=== PATIENT | female | born 1965 | race American Indian/Alaskan Native ===

== ENCOUNTER 2017-03-31 19:59 | Inpatient (IN) | payer OTHER, MEDICARE ==
[2017-03-31] MEDS ORDERED: Famotidine 20 MG/2 ML SDV IVPUSH ONE (22:14)
[2017-03-31] MEDS ORDERED: diphenhydrAMINE 25 MG Tab PO ONE (22:15)
[2017-03-31] MEDS ORDERED: Polyethylene Glycol 3350 Powder 17 GM Packet PO PRN (23:53)
[2017-03-31] MEDS ORDERED: Ondansetron 4 MG/2 ML SDV IVPUSH PRN (23:53)
[2017-03-31] MEDS ORDERED: Docusate Sodium 100 MG Cap PO PRN (23:53)
[2017-03-31] MEDS ORDERED: Acetaminophen/HYDROcodone 325-10 MG Tab PO PRN (23:53)
[2017-03-31] MEDS ORDERED: Acetaminophen 325 MG Tab PO PRN (23:53)
[2017-03-31] MEDS ORDERED: Morphine 2 MG/ML Syringe IVPUSH PRN (23:53)
[2017-03-31] MEDS ORDERED: Zolpidem 5 MG Tab PO PRN (23:53)
--- NOTE | 2017-03-31 23:58 | PCM.HP ---
H&P History of Present Illness - General Date of Service: 03/31/17 Admit Problem/Dx: Admission Diagnosis/Problem Admission Diagnosis/Problem Cellulitis Source of Information: Patient History Limitations: Reports: No Limitations - History of Present Illness Initial Comments - Free Text/Narative: 51-year-old female with past medical history of diabetes mellitus, renal failure status post kidney transplant in November of 2015, GERD, hypertension presented the emergency room for right lower extremities redness, tenderness, and 2 open sores. Patient stated that 6 days ago started having to pain and skin breakdown underside of her right toes and right foot bottom. 3 days later she started having redness, itching, tenderness in the frontal side of her right leg and was complaining of nausea, chills, headache but no fever. On she went to the clinic and was prescribed Keflex and cetrizine. however her right leg redness got worse so she came to the emergency room. In the emergency room her WBC 12.1 with left shift, sodium 131, BUN 33, creatinine 1.2, glucose 267, lactic acid 1.2, liver enzymes are normal. wound and blood cultures were obtained her ER provider spoke to Dr. Sung, her kidney transplant physician at [facility] in [place], who agreed to vancomycin. admission vancomycin was continued and Ancef was added. Right Lower Leg Pain Score (Numeric/FACES): 7 - Related Data Allergies/Adverse Reactions: Allergies Allergy/AdvReac Type Severity Reaction Status Date / Time acetaminophen Allergy Severe Cannot Verified 03/31/17 22:45 Remember Home Medications: Home Meds Cetirizine [ZyrTEC] 10 mg PO DAILY PRN 03/31/17 [History] Insulin Aspart [NovoLOG] 10 units SUBCUT TID 03/31/17 [History] Insulin Detemir [Levemir] 14 unit SUBCUT BID 03/31/17 [History] Mycophenolate Mofetil [Cellcept] 500 mg PO BID 03/31/17 [History] Pantoprazole Sodium [Protonix] 40 mg PO DAILY 03/31/17 [History] Tacrolimus [Envarsus Xr] 4 mg PO BID 03/31/17 [History] atorvaSTATin [Lipitor] 20 mg PO DAILY 03/31/17 [History] predniSONE [Prednisone] 5 mg PO DAILY 03/31/17 [History] Past Medical History HEENT History: Reports: Impaired Vision Cardiovascular History: Reports: High Cholesterol, Hypertension Respiratory History: Reports: None Gastrointestinal History: Reports: None Genitourinary History: Reports: Dialysis, Other (See Below) Other Genitourinary History: kidney transplant 2015 [employer] History: Reports: , Spontaneous Musculoskeletal History: Reports: None Neurological History: Reports: None Psychiatric History: Reports: None Endocrine/Metabolic History: Reports: Diabetes, Type II Hematologic History: Reports: Anemia Immunologic History: Reports: Solid Organ Transplant Oncologic (Cancer) History: Reports: None Dermatologic History: Reports: None - Infectious Disease History Infectious Disease History: Reports: Measles - Past Surgical History Cardiovascular Surgical History: Reports: Other (See Below) Other Cardiovascular Surgeries/Procedures: left AC fistula GI Surgical History: Reports: None Female Surgical History: Reports: Section, Hysterectomy Other Female Surgeries/Procedures: Kidney transplant Musculoskeletal Surgical History: Reports: None Social & Family History - Family History Family Medical History: Noncontributory - Tobacco Use Smoking Status *Q: Never Smoker Second Hand Smoke Exposure: Yes - Caffeine Use Caffeine Use: Reports: Soda, Tea - Recreational Drug Use Recreational Drug Use: No H&P Review of Systems - Review of Systems: Review Of Systems: See Below General: Denies: Fever, Weakness, Night Sweats, Diaphoresis, Decreased Appetite , Weight Loss, Weight Gain HEENT: Reports: No Symptoms Pulmonary: Reports: No Symptoms Cardiovascular: Reports: No Symptoms Gastrointestinal: Reports: No Symptoms Genitourinary: Reports: No Symptoms Musculoskeletal: Reports: No Symptoms Skin: Denies: Cyanosis, Jaundice, Pallor, Diaphoresis, Bruising, Urticaria Psychiatric: Reports: No Symptoms Neurological: Reports: No Symptoms Hematologic/Lymphatic: Reports: No Symptoms Immunologic: Reports: No Symptoms Exam - Exam Exam: See Below - Vital Signs Vital Signs: Last Vital Signs Temp 36.3 C 03/31/17 22:42 Pulse 87 03/31/17 22:42 Resp 16 03/31/17 22:42 BP 143/55 H 03/31/17 22:42 Pulse Ox 100 03/31/17 22:42 Weight: 73.482 kg - Exam General: Alert, Oriented, Cooperative. No: Mild Distress, Moderate Distress, Severe Distress, Sedated, Lethargic, Obtunded HEENT: Conjunctiva Clear, EACs Clear, EOMI, Hearing Intact, Mucosa Moist & [place] , Nares Patent, Normal Nasal Septum, Posterior Pharynx Clear, Pupils Equal, Pupils Reactive, TMs Clear Neck: Supple, Trachea Midline Lungs: Clear to Auscultation, Normal Respiratory Effort Cardiovascular: Regular Rate, Regular Rhythm Abdomen: Normal Bowel Sounds, Soft, Pelvis Stable (Female) Exam: Deferred Rectal (Female) Exam: Deferred Back Exam: Normal Inspection, Full Range of Motion Extremities: Normal Pulses. No: Clubbing, Cyanosis, Calf Tenderness, Edema Skin: Warm, Dry, Other (she has marked redness, warmth, tenderness on the frontal right lower leg. Second write to hasn't first degree ulcer on medial and lateral side. There is macerated skin and crack between the fourth and fifth right toes. There is superficial small wound on right plantar) Neurological: Cranial Nerves Intact, Reflexes Equal Bilateral Neuro Extensive - Mental Status: Alert, Oriented x3, Normal Mood/Affect, Normal Cognition, Memory Intact Neuro Extensive - Motor, Sensory, Reflexes: CN II-XII Intact, Normal Gait, Normal Reflexes Psychiatric: Alert, Normal Affect, Normal Mood - Patient Data Result Diagrams: 03/31/17 20:55 03/31/17 20:55 *Q Meaningful Use (ADM) - VTE *Q VTE Criteria *Q: - Stroke *Q Stroke Criteria *Q: - AMI *Q AMI Criteria *Q: - Problem List (1) Cellulitis of right leg SNOMED Code(s): 272007150 ICD Code: L03.115 - CELLULITIS OF RIGHT LOWER LIMB Status: Acute Priority : High Current Visit: Yes (2) Right foot ulcer SNOMED Code(s): 90387674 ICD Code: L97.519 - NON-PRS CHRONIC ULCER OTH PRT RIGHT FOOT W UNSP SEVERITY Status: Acute Priority: High Current Visit: Yes (3) Diabetic ulcer of right foot SNOMED Code(s): 277586391 ICD Code: E11.621 - TYPE 2 DIABETES MELLITUS WITH FOOT ULCER; L97.519 - NON- PRS CHRONIC ULCER OTH PRT RIGHT FOOT W UNSP SEVERITY Status: Chronic Current Visit: Yes (4) Tinea pedis of right foot SNOMED Code(s): 1589334 ICD Code: B35.3 - TINEA PEDIS Status: Acute Current Visit: Yes (5) Diabetes mellitus SNOMED Code(s): 07013324 ICD Code: E11.9 - TYPE 2 DIABETES MELLITUS WITHOUT COMPLICATIONS Status: Chronic Current Visit: Yes (6) Kidney transplant recipient SNOMED Code(s): 531141185 ICD Code: Z94.0 - KIDNEY TRANSPLANT STATUS Status: Chronic Current Visit : Yes (7) Hyponatremia SNOMED Code(s): 55959875 ICD Code: E87.1 - HYPO-OSMOLALITY AND HYPONATREMIA Status: Chronic Current Visit: No Problem List Initiated/Reviewed/Updated: Yes Orders Last 24hrs: Active Orders 24 hr Category Date Time Status Patient Status [ADT] Routine ADT 03/31/17 23:51 Active Antiembolic Devices [RC] PER UNIT ROUTINE Care 03/31/17 23:53 Active Height and Weight [RC] DAILY Care 03/31/17 23:51 Active Intake and Output [RC] QSHIFT Care 03/31/17 23:52 Active Oxygen Therapy [RC] PRN Care 03/31/17 23:51 Active Up ad Linda [RC] ASDIRECTED Care 03/31/17 23:51 Active VTE/DVT Education [RC] PER UNIT ROUTINE Care 03/31/17 23:51 Active Vital Signs [RC] Q4H Care 03/31/17 23:51 Active Consistent Carbohydrate Diet [DIET] Diet 03/31/17 Breakfast Active BASIC METABOLIC PANEL,BMP [CHEM] AM Lab 04/01/17 05:11 Ordered C-REACTIVE PROTEIN [REF] DAILY Lab 03/31/17 05:11 Ordered C-REACTIVE PROTEIN [REF] DAILY Lab 04/01/17 05:11 Ordered C-REACTIVE PROTEIN [REF] DAILY Lab 04/02/17 05:11 Ordered CBC WITH AUTO DIFF [HEME] AM Lab 04/01/17 05:11 Ordered Acetaminophen [Tylenol] Med 03/31/17 23:53 Ordered 650 mg PO Q4H PRN Acetaminophen/HYDROcodone [[place] 325-10 MG] Med 03/31/17 23:53 Ordered 1 tab PO Q4H PRN Cetirizine [ZyrTEC] Med 03/31/17 23:49 Ordered 10 mg PO DAILY PRN Docusate Sodium [Colace] Med 03/31/17 23:53 Ordered 100 mg PO BID PRN Enoxaparin [Lovenox] Med 04/01/17 09:00 Ordered 40 mg SUBCUT DAILY Insulin Aspart [NovoLOG] Med 04/01/17 09:00 Ordered 10 unit SUBCUT TID Insulin Detemir Med 04/01/17 09:00 Ordered 14 unit SUBCUT BID Morphine Med 03/31/17 23:53 Ordered 2 mg IVPUSH Q2H PRN Mycophenolate Mofetil [Cellcept] Med 04/01/17 09:00 Ordered 500 mg PO BID Ondansetron [Zofran] Med 03/31/17 23:53 Ordered 4 mg IVPUSH Q6H PRN Pantoprazole Sodium [Protonix] Med 04/01/17 09:00 Ordered 40 mg PO DAILY Polyethylene Glycol 3350 [MiraLAX] Med 03/31/17 23:53 Ordered 17 gm PO DAILY PRN Sodium Chloride 0.9% @ 125 MLS/HR (1000ml) Med 03/31/17 23:45 Ordered Sodium Chloride 0.9% [Normal Saline] 1,000 ml IV ASDIRECTED Tacrolimus [Envarsus Xr] Med 04/01/17 09:00 Ordered 4 mg PO BID Vancomycin Pharmacy to Dose [Pharmacy to Dose - Med 03/31/17 23:45 Ordered Vancomycin] 1 dose .XX ASDIRECTED Zolpidem [Ambien] Med 03/31/17 23:53 Ordered 5 mg PO BEDTIME PRN atorvaSTATin [Lipitor] Med 04/01/17 09:00 Ordered 20 mg PO DAILY ceFAZolin [Ancef] 1 gm Med 04/01/17 06:00 Ordered Premix Bag 1 bag IV Q8HR predniSONE Med 04/01/17 09:00 Ordered 5 mg PO DAILY Antiembolic Hose [OM.PC] Per Unit Routine Oth 03/31/17 23:52 Ordered Resuscitation Status Routine Resus Stat 03/31/17 23:51 Ordered Assessment/Plan Comment:: Right foot cellulitis -vancomycin and Ancef IV -Awaiting Gram stain, with culture, blood culture results Lymphedema wrap pharmacy to dose Vancomycin Diabetic foot ulcer Control blood glucose Dressing IV antibiotic Clotrimazole topical Patient was indicated to avoid tight open shoes and try to wear diabetic shoes Tinea pedis, right foot Clotrimazole twice a day Diabetes mellitus Sliding scale insulin in addition to her home regimen diabetic diet Hyponatremia, possible chronic -IV fluids infusion with normal saline -recheck sodium level in the morning Status post kidney transplant in November of 2015 Dr. Logan is aware of patient admission His phone number is [phone] Watch creatinine Continue prednisone, Mycophenolate, and Tacrolimus GERD continue pantoprazole Lovenox for DVT prophylaxis She spoke with
[2017-04-01] MEDS ORDERED: oxyCODONE 5 MG Tab PO PRN (00:42)
[2017-04-01] MEDS: Sodium Chloride 0.9% 1,000 ML IV SCH ×2 (00:44→09:22)
[2017-04-01] MEDS: ceFAZolin 1 GM in Premix Bag 1 BAG IV SCH ×3 (01:32→17:35)
--- NOTE | 2017-04-01 03:53 | EDM.PDOC ---
ED HPI GENERAL MEDICAL PROBLEM - General Chief Complaint: Skin Complaint Stated Complaint: SPIDER BITE Time Seen by Provider: 03/31/17 20:10 Source of Information: Reports: Patient History Limitations: Reports: No Limitations - History of Present Illness INITIAL COMMENTS - FREE TEXT/NARRATIVE: c/o of increased redness swelling and pain to right lower leg. Was [facility] at [facility] on[facility] and started on keflex, origianlly thought it was spiderbite and was told by MD there that it was allergic reaction to something, also gave triamcinolone cream and another medication unsure what it was. Voices concern with interactions with other current medications as is renal transplant patient , November 2015 Jasen Moreno. Onset: Other (, clinic Sunday) Right Lower Leg Pain Score (Numeric/FACES): 7 - Related Data Allergies Allergy/AdvReac Type Severity Reaction Status Date / Time acetaminophen Allergy Severe Cannot Verified 03/31/17 22:45 Remember Home Meds: Home Meds Cetirizine [ZyrTEC] 10 mg PO DAILY PRN 03/31/17 [History] Insulin Aspart [NovoLOG] 10 units SUBCUT TID 03/31/17 [History] Insulin Detemir [Levemir] 14 unit SUBCUT BID 03/31/17 [History] Mycophenolate Mofetil [Cellcept] 500 mg PO BID 03/31/17 [History] Pantoprazole Sodium [Protonix] 40 mg PO DAILY 03/31/17 [History] Tacrolimus [Envarsus Xr] 4 mg PO BID 03/31/17 [History] atorvaSTATin [Lipitor] 20 mg PO DAILY 03/31/17 [History] predniSONE [Prednisone] 5 mg PO DAILY 03/31/17 [History] Past Medical History HEENT History: Reports: Impaired Vision Cardiovascular History: Reports: High Cholesterol, Hypertension Respiratory History: Reports: None Gastrointestinal History: Reports: None Genitourinary History: Reports: Dialysis, Other (See Below) Other Genitourinary History: kidney transplant 2015 [employer] History: Reports: , Spontaneous Musculoskeletal History: Reports: None Neurological History: Reports: None Psychiatric History: Reports: None Endocrine/Metabolic History: Reports: Diabetes, Type II Hematologic History: Reports: Anemia Immunologic History: Reports: Solid Organ Transplant Oncologic (Cancer) History: Reports: None Dermatologic History: Reports: None - Infectious Disease History Infectious Disease History: Reports: Measles - Past Surgical History Cardiovascular Surgical History: Reports: Other (See Below) Other Cardiovascular Surgeries/Procedures: left AC fistula GI Surgical History: Reports: None Female Surgical History: Reports: Section, Hysterectomy Other Female Surgeries/Procedures: Kidney transplant Musculoskeletal Surgical History: Reports: None Social & Family History - Family History Family Medical History: Noncontributory - Tobacco Use Smoking Status *Q: Never Smoker Second Hand Smoke Exposure: Yes - Caffeine Use Caffeine Use: Reports: Soda, Tea - Recreational Drug Use Recreational Drug Use: No ED ROS GENERAL - Review of Systems Review Of Systems: See Below Constitutional: Reports: Fever HEENT: Reports: No Symptoms Respiratory: Reports: No Symptoms Cardiovascular: Reports: No Symptoms Endocrine: Reports: High Glucose GI/Abdominal: Reports: No Symptoms Musculoskeletal: Reports: Leg Pain Skin: Reports: Erythema, Wound (open sores right foot between toes) Neurological: Reports: No Symptoms Immunologic: Reports: Other (immunosuppressed) ED EXAM, SKIN/RASH Exam: See Below Exam Limited By: No Limitations General Appearance: Alert, Mild Distress Eye Exam: Bilateral Eye: EOMI, PERRL Ears: Normal External Exam, Normal TMs Nose: Normal Inspection Throat/Mouth: Normal Inspection Head: Atraumatic, Normocephalic Neck: Normal Inspection Respiratory/Chest: No Respiratory Distress, Lungs Clear, Normal Breath Sounds Cardiovascular: Normal Peripheral Pulses, Regular Rate, Rhythm Peripheral Pulses: 2+: Posterior Tibial (L), Posterior Tibial (R) GI/Abdominal: Normal Bowel Sounds, Soft Extremities: Normal Range of Motion, Leg Pain. No: Chrissy's Sign Neurological: Alert, Oriented, Normal Cognition, Abnormal Gait (antalgic favoring right leg) Skin: Warm, Erythema (right lower), Wound/Incision (open area between 4th and 5th toes 1st-3rd, web space. ). No: Intact Location, Skin: Upper Extremity, Right Characteristics: [place], Erythematous. No: Vesicular Course - Vital Signs Last Recorded V/S: Last Vital Signs Temp 99.4 F 04/01/17 03:00 Pulse 83 04/01/17 03:00 Resp 16 04/01/17 03:00 BP 118/55 L 04/01/17 03:00 Pulse Ox 95 04/01/17 03:00 - Orders/Labs/Meds Orders: Active Orders 24 hr Category Date Time Status CULTURE BLOOD [BC] Stat Lab 03/31/17 22:20 Results CULTURE WOUND [RM] Stat Lab 03/31/17 20:55 Received Cetirizine [ZyrTEC] Med 03/31/17 23:49 Pending 10 mg PO DAILY PRN Insulin Aspart [NovoLOG] Med 04/01/17 09:00 Active 0 unit SUBCUT TID Insulin Detemir [Levemir] Med 04/01/17 09:00 Active 0 unit SUBCUT BID Mycophenolate Mofetil [Cellcept] Med 04/01/17 09:00 Active 500 mg PO BID Pantoprazole [ProTONIX] Med 04/01/17 09:00 Active 40 mg PO DAILY Tacrolimus [Envarsus Xr] Med 04/01/17 09:00 Pending 4 mg PO BID atorvaSTATin [Lipitor] Med 04/01/17 09:00 Active 20 mg PO DAILY predniSONE Med 04/01/17 09:00 Active 5 mg PO DAILY Blood Culture x2 Reflex Set [OM.PC] Stat Oth 03/31/17 22:00 Ordered Medication Orders Atorvastatin Calcium (Lipitor) 20 mg PO DAILY [facility] Clotrimazole (Lotrimin Af 1% Crm) 0 gm TOP BID [facility] Docusate Sodium (Colace) 100 mg PO BID PRN PRN Reason: Constipation Enoxaparin Sodium (Lovenox) 40 mg SUBCUT DAILY [facility] Sodium Chloride (Normal Saline) 1,000 mls @ 125 mls/hr IV ASDIRECTED [facility] Stop: 04/01/17 18:00 Last Admin: 04/01/17 00:44 Dose: 125 mls/hr Vancomycin HCl 1 gm/ Sodium (Chloride) 250 mls @ 166.667 mls/hr IV Q12H [facility] Cefazolin Sodium/Dextrose 1 gm (/ Premix) 50 mls @ 100 mls/hr IV Q8H [facility] Last Infusion: 04/01/17 02:29 Dose: 100 mls/hr Admin: 04/01/17 01:32 Dose: 100 mls/hr Insulin Aspart (Novolog) 0 unit SUBCUT TID [facility] Insulin Aspart (Novolog) 0 unit SUBCUT QIDACANDBED [facility] PRN Reason: Protocol Insulin Detemir (Levemir) 0 unit SUBCUT BID [facility] Morphine Sulfate (Morphine) 2 mg IVPUSH Q2H PRN PRN Reason: Pain (severe 7-10) Mycophenolate Mofetil (Cellcept) 500 mg PO BID [facility] Non-Formulary Medication (Cetirizine [Zyrtec]) 10 mg PO DAILY PRN PRN Reason: Allergies Non-Formulary Medication (Tacrolimus [Envarsus Xr]) 4 mg PO BID [facility] Ondansetron HCl (Zofran) 4 mg IVPUSH Q6H PRN PRN Reason: Nausea/Vomiting Oxycodone HCl (Oxycodone) 5 mg PO Q6H PRN PRN Reason: moderate to sever pain Pantoprazole Sodium (Protonix) 40 mg PO DAILY [facility] Polyethylene Glycol (Miralax) 17 gm PO DAILY PRN PRN Reason: Constipation Prednisone (Prednisone) 5 mg PO DAILY [facility] Vancomycin HCl (Pharmacy To Dose - Vancomycin) 1 dose .XX ASDIRECTED [facility] Zolpidem Tartrate (Ambien) 5 mg PO BEDTIME PRN PRN Reason: Sleep Labs: Laboratory Tests 03/31/17 03/31/17 03/31/17 Range/Units 20:55 20:55 20:55 WBC 12.1 H (5.0-10.0) 10^3/uL RBC 4.21 (4.2-5.4) 10^6/uL Hgb 11.7 L (12.0-16.0) g/dL Hct 36.0 L (37.0-47.0) % MCV 85.5 (80-100) fL MCH 27.8 (27.0-34.0) pg MCHC 32.5 L (33.0-35.0) g/dL Plt Count 195 (150-450) 10^3/uL Neut % (Auto) 89.3 H (42.2-75.2) % Lymph % (Auto) 3.4 L (20.5-50.1) % [place] % (Auto) 7.0 (2-8) % Eos % (Auto) 0.2 L (1.0-3.0) % Baso % (Auto) 0.1 (0.0-1.0) % Sodium 131 L (135-145) mmol/L Potassium 4.6 (3.6-5.0) mmol/L Chloride 99 L (101-111) mmol/L Carbon Dioxide 26.0 (21.0-31.0) mmol/L Anion Gap 10.6 BUN 33 H (7-18) mg/dL Creatinine 1.2 (0.6-1.3) mg/dL Est Cr Clr Drug Dosing 46.91 mL/min Estimated GFR (MDRD) 48 BUN/Creatinine Ratio 27.50 Glucose 267 H (74-105) mg/dL Lactic Acid 1.0 (0.5-2.2) mmol/L Calcium 8.5 (8.4-10.2) mg/dl Total Bilirubin 1.0 (0.2-1.0) mg/dL AST 22 (10-42) IU/L ALT 15 (10-60) IU/L Alkaline Phosphatase 101 (42-121) IU/L C-Reactive Protein (0.0-1.3) mg/dL Total Protein 7.5 (6.7-8.2) g/dl Albumin 3.7 (3.2-5.5) g/dl Globulin 3.8 Albumin/Globulin Ratio 0.97 05//17 Range/Units 20:55 WBC (5.0-10.0) 10^3/uL RBC (4.2-5.4) 10^6/uL Hgb (12.0-16.0) g/dL Hct (37.0-47.0) % MCV (80-100) fL MCH (27.0-34.0) pg MCHC (33.0-35.0) g/dL Plt Count (150-450) 10^3/uL Neut % (Auto) (42.2-75.2) % Lymph % (Auto) (20.5-50.1) % [place] % (Auto) (2-8) % Eos % (Auto) (1.0-3.0) % Baso % (Auto) (0.0-1.0) % Sodium (135-145) mmol/L Potassium (3.6-5.0) mmol/L Chloride (101-111) mmol/L Carbon Dioxide (21.0-31.0) mmol/L Anion Gap BUN (7-18) mg/dL Creatinine (0.6-1.3) mg/dL Est Cr Clr Drug Dosing mL/min Estimated GFR (MDRD) BUN/Creatinine Ratio Glucose (74-105) mg/dL Lactic Acid (0.5-2.2) mmol/L Calcium (8.4-10.2) mg/dl Total Bilirubin (0.2-1.0) mg/dL AST (10-42) IU/L ALT (10-60) IU/L Alkaline Phosphatase (42-121) IU/L C-Reactive Protein 14.7 H (0.0-1.3) mg/dL Total Protein (6.7-8.2) g/dl Albumin (3.2-5.5) g/dl Globulin Albumin/Globulin Ratio Meds: Medications Generic Name Dose Route Start Last Admin Trade Name Freq PRN Reason Stop Dose Admin Atorvastatin Calcium 20 mg 04/01/17 09:00 Lipitor PO DAILY [facility] Clotrimazole 0 gm 04/01/17 09:00 Lotrimin Af 1% Crm TOP BID [facility] Docusate Sodium 100 mg 03/31/17 23:53 Colace PO BID PRN Constipation Enoxaparin Sodium 40 mg 04/01/17 09:00 Lovenox SUBCUT DAILY [facility] Sodium Chloride 1,000 mls @ 125 mls/hr 03/31/17 23:45 04/01/17 00:44 Normal Saline IV 04/01/17 18:00 125 mls/hr ASDIRECTED [facility] Administration Vancomycin HCl 1 gm/ Sodium 250 mls @ 166.667 mls/hr 04/01/17 10:00 Chloride IV Q12H [facility] Cefazolin Sodium/Dextrose 1 gm 50 mls @ 100 mls/hr 04/01/17 01:00 04/01/17 02 :29 / Premix IV Infused Q8H [facility] Infusion Insulin Aspart 0 unit 04/01/17 09:00 Novolog SUBCUT TID [facility] Insulin Aspart 0 unit 04/01/17 07:00 Novolog SUBCUT QIDACANDBED [facility] Protocol Insulin Detemir 0 unit 04/01/17 09:00 Levemir SUBCUT BID [facility] Morphine Sulfate 2 mg 03/31/17 23:53 Morphine IVPUSH Q2H PRN Pain (severe 7-10) Mycophenolate Mofetil 500 mg 04/01/17 09:00 Cellcept PO BID [facility] Non-Formulary Medication 10 mg 03/31/17 23:49 Cetirizine [Zyrtec] PO DAILY PRN Allergies Non-Formulary Medication 4 mg 04/01/17 09:00 Tacrolimus [Envarsus Xr] PO BID [facility] Ondansetron HCl 4 mg 03/31/17 23:53 Zofran IVPUSH Q6H PRN Nausea/Vomiting Oxycodone HCl 5 mg 04/01/17 00:42 Oxycodone PO Q6H PRN moderate to sever pain Pantoprazole Sodium 40 mg 04/01/17 09:00 Protonix PO DAILY [facility] Polyethylene Glycol 17 gm 03/31/17 23:53 Miralax PO DAILY PRN Constipation Prednisone 5 mg 04/01/17 09:00 Prednisone PO DAILY [facility] Vancomycin HCl 1 dose 03/31/17 23:45 Pharmacy To Dose - Vancomycin .XX ASDIRECTED [facility] Zolpidem Tartrate 5 mg 03/31/17 23:53 Ambien PO BEDTIME PRN Sleep Discontinued Medications Generic Name Dose Route Start Last Admin Trade Name Freq PRN Reason Stop Dose Admin Acetaminophen 650 mg 03/31/17 23:53 Tylenol PO Q4H PRN Pain (Mild 1-3)/fever Hydrocodone Bitart/Acetaminophen 1 tab 03/31/17 23:53 Harvey 325-10 Mg PO Q4H PRN Pain (moderate 4-6) Diphenhydramine HCl 25 mg 03/31/17 22:15 03/31/17 22:28 Benadryl PO 03/31/17 22:16 25 mg ONETIME ONE Administration Famotidine 20 mg 03/31/17 22:14 03/31/17 22:28 Pepcid IVPUSH 03/31/17 22:15 20 mg ONETIME ONE Administration Vancomycin HCl 1 gm/ Sodium 250 mls @ 167 mls/hr 03/31/17 22:12 03/31/17 22: 30 Chloride IV 03/31/17 23:41 167 mls/hr ONETIME ONE Administration Cefazolin Sodium/Dextrose 1 gm 50 mls @ 100 mls/hr 04/01/17 06:00 / Premix IV Q8HR [facility] - Re-Assessments/Exams Free Text/Narrative Re-Assessment/Exam: 04/01/17 04:[address] Pineda Moreno if clinical stable may trial outpatient however with open wound and elevated WBC would benefit from IV therapy. Dr. Dunham accepting of admission. IV vancomycin compatibility confirmed with Dr. Barnsdall as appropriate with trransplant. Departure - Departure Time of Disposition: 03:00 Disposition: Admitted As Inpatient 68 Condition: fair Clinical Impression: Open wound, Renal transplant recipient Cellulitis Qualifiers: Site of cellulitis: extremity Site of cellulitis of extremity: lower extremity Laterality: right Qualified Code(s): L03.115 - Cellulitis of right lower limb Diabetes mellitus Qualifiers: Diabetes mellitus type: type 2 Diabetes mellitus complication status: with kidney complications Diabetes mellitus complication detail: with other kidney complication Diabetes mellitus rn long term care insulin use: without rn long term care use Qualified Code(s): E11.29 - Type 2 diabetes mellitus with other diabetic kidney complication - Discharge Information - My Orders Last 24 Hours: My Active Orders 03/31/17 20:55 CULTURE WOUND [RM] Stat 03/31/17 22:00 Blood Culture x2 Reflex Set [OM.PC] Stat 03/31/17 22:20 CULTURE BLOOD [BC] Stat - Assessment/Plan Last 24 Hours: My Active Orders 03/31/17 20:55 CULTURE WOUND [RM] Stat 03/31/17 22:00 Blood Culture x2 Reflex Set [OM.PC] Stat 03/31/17 22:20 CULTURE BLOOD [BC] Stat
[2017-04-01] MEDS ORDERED: ceFAZolin 1 GM in Premix Bag 1 BAG IV SCH (06:00)
[2017-04-01 07:26] LABS: CHLORIDE,CL 106 mmol/L (101-111); SODIUM,NA 134 mmol/L (135-145)
[2017-04-01] MEDS: Insulin Aspart 100 Units/ML 3 ML Pen SUBCUT SCH ×6 (08:26→21:08)
[2017-04-01] MEDS ORDERED: Insulin Aspart 100 Units/ML 3 ML Pen SUBCUT SCH (09:00)
[2017-04-01] MEDS ORDERED: Mycophenolate Mofetil 250 MG Cap PO SCH (09:00)
[2017-04-01] MEDS: TACROLIMUS 4 MG PO SCH ×2 (09:09→21:07)
[2017-04-01] MEDS: Insulin Detemir 100 Units/ML 3 ML Pen SUBCUT SCH ×2 (09:10→21:07)
[2017-04-01] MEDS: atorvaSTATin 20 MG Tab PO SCH (09:11)
[2017-04-01] MEDS: predniSONE 5 MG Tab PO SCH (09:11)
[2017-04-01] MEDS: Enoxaparin 40 MG/0.4 ML Syringe SUBCUT SCH (09:12)
[2017-04-01] MEDS: Clotrimazole 1% Crm 30 GM Tube TOP SCH ×2 (09:12→21:08)
[2017-04-01] MEDS: Pantoprazole 40 MG Tab.CR PO SCH (09:15)
[2017-04-01] MEDS: Mycophenolate Mofetil 250 MG Cap PO SCH ×2 (11:33→23:02)
--- NOTE | 2017-04-01 11:47 | PCM.PN ---
- General Info Date of Service: 04/01/17 Admission Dx/Problem (Free Text): Admission Diagnosis/Problem Admission Diagnosis/Problem Cellulitis Subjective Update: patient states that she is feeling better. Her right leg redness improved. She still complained of a right leg pain when she walks. She stated that oxycodone is strong for her and she requests only Tylenol. She stated she is to have history of Tylenol allergy many years ago recently she has been taking it multiple times without any reactions or problem. She denies fever, chills, nausea, vomiting, abdominal pain, or neck symptoms, unilateral weakness, or any other symptoms - Patient Data Vitals - most recent: Last Vital Signs Temp 36.3 C 04/01/17 11:19 Pulse 83 04/01/17 11:19 Resp 20 04/01/17 11:19 BP 118/46 L 04/01/17 11:19 Pulse Ox 98 04/01/17 11:19 Weight - most recent: 73.663 kg I&O - last 24 hours: Intake & Output 03/31/17 04/01/17 04/01/17 22:59 06:59 14:59 Intake Total 302 982 Balance 302 982 Lab Results last 24 hrs: Laboratory Results - last 24 hr 04/01/17 04/01/17 04/01/17 Range/Units 06:30 06:30 06:30 WBC 9.0 (5.0-10.0) 10^3/uL RBC 3.77 L (4.2-5.4) 10^6/uL Hgb 10.6 L (12.0-16.0) g/dL Hct 32.7 L (37.0-47.0) % MCV 86.7 (80-100) fL MCH 28.1 (27.0-34.0) pg MCHC 32.4 L (33.0-35.0) g/dL Plt Count 194 (150-450) 10^3/uL Neut % (Auto) 85.3 H (42.2-75.2) % Lymph % (Auto) 4.6 L (20.5-50.1) % [place] % (Auto) 9.4 H (2-8) % Eos % (Auto) 0.6 L (1.0-3.0) % Baso % (Auto) 0.1 (0.0-1.0) % Sodium 134 L (135-145) mmol/L Potassium 3.8 (3.6-5.0) mmol/L Chloride 106 (101-111) mmol/L Carbon Dioxide 24.0 (21.0-31.0) mmol/L Anion Gap 7.8 BUN 24 H (7-18) mg/dL Creatinine 0.9 (0.6-1.3) mg/dL Est Cr Clr Drug Dosing 62.55 mL/min Estimated GFR (MDRD) > 60 Glucose 176 H (74-105) mg/dL POC Glucose (70-105) mg/dl Calcium 8.0 L (8.4-10.2) mg/dl C-Reactive Protein 11.2 H (0.0-1.3) mg/dL 04/01/17 04/01/17 Range/Units 08:07 11:11 WBC (5.0-10.0) 10^3/uL RBC (4.2-5.4) 10^6/uL Hgb (12.0-16.0) g/dL Hct (37.0-47.0) % MCV (80-100) fL MCH (27.0-34.0) pg MCHC (33.0-35.0) g/dL Plt Count (150-450) 10^3/uL Neut % (Auto) (42.2-75.2) % Lymph % (Auto) (20.5-50.1) % [place] % (Auto) (2-8) % Eos % (Auto) (1.0-3.0) % Baso % (Auto) (0.0-1.0) % Sodium (135-145) mmol/L Potassium (3.6-5.0) mmol/L Chloride (101-111) mmol/L Carbon Dioxide (21.0-31.0) mmol/L Anion Gap BUN (7-18) mg/dL Creatinine (0.6-1.3) mg/dL Est Cr Clr Drug Dosing mL/min Estimated GFR (MDRD) Glucose (74-105) mg/dL POC Glucose 172 H 218 H (70-105) mg/dl Calcium (8.4-10.2) mg/dl C-Reactive Protein (0.0-1.3) mg/dL [place] Results last 24 hrs: Microbiology 05/14/17 00:23 Gram Stain - Final Skin / Skin Scrapings - Toe, Right Unspecified Med Orders - Current: Current Medications Acetaminophen (Tylenol) 650 mg PO Q6H PRN PRN Reason: mild to moderate pain Atorvastatin Calcium (Lipitor) 20 mg PO DAILY [facility] Last Admin: 04/01/17 09:11 Dose: 20 mg Clotrimazole (Lotrimin Af 1% Crm) 0 gm TOP BID [facility] Last Admin: 04/01/17 09:12 Dose: 1 applic Docusate Sodium (Colace) 100 mg PO BID PRN PRN Reason: Constipation Enoxaparin Sodium (Lovenox) 40 mg SUBCUT DAILY [facility] Last Admin: 04/01/17 09:12 Dose: 40 mg Sodium Chloride (Normal Saline) 1,000 mls @ 125 mls/hr IV ASDIRECTED [facility] Stop: 04/01/17 18:00 Last Admin: 04/01/17 09:22 Dose: 125 mls/hr Vancomycin HCl 1 gm/ Sodium (Chloride) 250 mls @ 166.667 mls/hr IV Q12H [facility] Last Admin: 04/01/17 11:33 Dose: 166.667 mls/hr Cefazolin Sodium/Dextrose 1 gm (/ Premix) 50 mls @ 100 mls/hr IV Q8H [facility] Last Admin: 04/01/17 09:13 Dose: 100 mls/hr Insulin Aspart (Novolog) 0 unit SUBCUT TID [facility] Last Admin: 04/01/17 08:25 Dose: 10 units Insulin Aspart (Novolog) 0 unit SUBCUT QIDACANDBED [facility] PRN Reason: Protocol Last Admin: 04/01/17 08:26 Dose: 2 units Insulin Detemir (Levemir) 0 unit SUBCUT BID [facility] Last Admin: 04/01/17 09:10 Dose: 14 units Morphine Sulfate (Morphine) 2 mg IVPUSH Q2H PRN PRN Reason: Pain (severe 7-10) Mycophenolate Mofetil (Cellcept) 500 mg PO BID@1100,2300 [facility] Last Admin: 04/01/17 11:33 Dose: 500 mg Non-Formulary Medication (Cetirizine [Zyrtec]) 10 mg PO DAILY PRN PRN Reason: Allergies Ondansetron HCl (Zofran) 4 mg IVPUSH Q6H PRN PRN Reason: Nausea/Vomiting Oxycodone HCl (Oxycodone) 5 mg PO Q6H PRN PRN Reason: moderate to sever pain Pantoprazole Sodium (Protonix) 40 mg PO DAILY [facility] Last Admin: 04/01/17 09:15 Dose: Not Given Tacrolimus 4 Mg (Own Med) 0 each PO BID [facility] Last Admin: 04/01/17 09:09 Dose: 4 each Polyethylene Glycol (Miralax) 17 gm PO DAILY PRN PRN Reason: Constipation Prednisone (Prednisone) 5 mg PO DAILY [facility] Last Admin: 04/01/17 09:11 Dose: 5 mg Vancomycin HCl (Pharmacy To Dose - Vancomycin) 1 dose .XX ASDIRECTED [facility] Zolpidem Tartrate (Ambien) 5 mg PO BEDTIME PRN PRN Reason: Sleep Discontinued Medications Acetaminophen (Tylenol) 650 mg PO Q4H PRN PRN Reason: Pain (Mild 1-3)/fever Hydrocodone Bitart/Acetaminophen ([place] 325-10 Mg) 1 tab PO Q4H PRN PRN Reason: Pain (moderate 4-6) Diphenhydramine HCl (Benadryl) 25 mg PO ONETIME ONE Stop: 03/31/17 22:16 Last Admin: 03/31/17 22:28 Dose: 25 mg Famotidine (Pepcid) 20 mg IVPUSH ONETIME ONE Stop: 03/31/17 22:15 Last Admin: 03/31/17 22:28 Dose: 20 mg Vancomycin HCl 1 gm/ Sodium (Chloride) 250 mls @ 167 mls/hr IV ONETIME ONE Stop: 03/31/17 23:41 Last Admin: 03/31/17 22:30 Dose: 167 mls/hr Cefazolin Sodium/Dextrose 1 gm (/ Premix) 50 mls @ 100 mls/hr IV Q8HR [facility] Mycophenolate Mofetil (Cellcept) 500 mg PO BID [facility] Last Admin: 04/01/17 11:28 Dose: Not Given - Exam General: alert, oriented, cooperative, no acute distress. No: mild distress, moderate distress, severe distress, sedated, lethargic, obtunded HEENT: Pupils equal, Pupils reactive, EOMI, Mucous membr. moist/pink Neck: supple, trachea midline Lungs: Clear to auscultation, Normal respiratory effort Cardiovascular: Regular Rate, Regular Rhythm Abdomen: bowel sounds present, soft, no tenderness, no distension (Female) Exam: Deferred Back Exam: Normal Inspection, Full Range of Motion Extremities: no edema, normal pulses, no tenderness/swelling, no clubbing, no cyanosis, no calf tenderness, other (normal capillary refills in sensation in toes bilaterally) Skin: other (right leg redness markedly improved) Neurological: no new focal deficit Psy/Mental Status: alert, normal affect, normal mood - Problem List & Annotations (1) Cellulitis of right leg SNOMED Code(s): 326438557 Code(s): L03.115 - CELLULITIS OF RIGHT LOWER LIMB Status: Acute Priority : High Current Visit: Yes (2) Right foot ulcer SNOMED Code(s): 98891995 Code(s): L97.519 - NON-PRS CHRONIC ULCER OTH PRT RIGHT FOOT W UNSP SEVERITY Status: Acute Priority: High Current Visit: Yes (3) Diabetic ulcer of right foot SNOMED Code(s): 308547809 Code(s): E11.621 - TYPE 2 DIABETES MELLITUS WITH FOOT ULCER; L97.519 - NON- PRS CHRONIC ULCER OTH PRT RIGHT FOOT W UNSP SEVERITY Status: Chronic Current Visit: Yes (4) Tinea pedis of right foot SNOMED Code(s): 9975138 Code(s): B35.3 - TINEA PEDIS Status: Acute Current Visit: Yes (5) Diabetes mellitus SNOMED Code(s): 12904782 Code(s): E11.9 - TYPE 2 DIABETES MELLITUS WITHOUT COMPLICATIONS Status: Chronic Current Visit: Yes Qualifiers: Diabetes mellitus type: type 2 Diabetes mellitus complication status: with kidney complications Diabetes mellitus complication detail: with other kidney complication Diabetes mellitus assistant terminal manager insulin use: without longterm use Qualified Code(s): E11.29 - Type 2 diabetes mellitus with other diabetic kidney complication (6) Kidney transplant recipient SNOMED Code(s): 256441066 Code(s): Z94.0 - KIDNEY TRANSPLANT STATUS Status: Chronic Current Visit: Yes (7) Hyponatremia SNOMED Code(s): 12741427 Code(s): E87.1 - HYPO-OSMOLALITY AND HYPONATREMIA Status: Chronic Current Visit: No (8) Acute kidney injury SNOMED Code(s): 15798564 Code(s): N17.9 - ACUTE KIDNEY FAILURE, UNSPECIFIED Status: Acute Current Visit: Yes - Problem List Review Problem List Initiated/Reviewed/Updated: Yes - My Orders Last 24 Hours: My Active Orders 03/31/17 23:45 Vancomycin Pharmacy to Dose [Pharmacy to Dose - Vancomycin] 1 dose .XX ASDIRECTED 03/31/17 23:53 Docusate Sodium [Colace] 100 mg PO BID PRN Morphine 2 mg IVPUSH Q2H PRN Ondansetron [Zofran] 4 mg IVPUSH Q6H PRN Polyethylene Glycol 3350 [MiraLAX] 17 gm PO DAILY PRN Zolpidem [Ambien] 5 mg PO BEDTIME PRN 04/01/17 00:23 OT Evaluation and Treatment [CONS] Routine 04/01/17 00:27 Accu Check [Blood Glucose Check, Bedside] [RC] QIDACANDBED 04/01/17 00:42 oxyCODONE 5 mg PO Q6H PRN 04/01/17 01:00 ceFAZolin [Ancef] 1 gm Premix Bag 1 bag IV Q8H 04/01/17 07:00 Insulin Aspart [NovoLOG] See Protocol SUBCUT QIDACANDBED 04/01/17 09:00 Clotrimazole [Lotrimin AF 1% Crm] See Dose Instructions TOP BID 04/01/17 10:00 Vancomycin [Vancocin] 1 gm Sodium Chloride 0.9% [Normal Saline] 250 ml IV Q12H 04/01/17 11:00 Mycophenolate Mofetil [Cellcept] 500 mg PO BID@1100,2300 04/01/17 11:37 BASIC METABOLIC PANEL,BMP [CHEM] Routine Acetaminophen [Tylenol] 650 mg PO Q6H PRN 04/02/17 05:11 BASIC METABOLIC PANEL,BMP [CHEM] Routine CBC WITH AUTO DIFF [HEME] Routine CRP [C-REACTIVE PROTEIN] [CHEM] AM - Plan Plan:: Right foot cellulitis Gram stain did not show organisms Lymphedema wrap -awaiting wound culture, blood culture results -vancomycin and Ancef IV pharmacy to dose Vancomycin Acute kidney injury, mild most likely from dehydration Her creatinine on admission was 1.2 -today the creatinine is 0.9 -continue to monitor creatinine Right leg pain From cellulitis Tylenol as needed for [id number] pain. patient was advised to report any month reaction to Tylenol especially if any symptoms in the mouth or any issue with breathing Oxycodone as needed for severe pain Diabetic foot ulcer Control blood glucose Dressing IV antibiotic Clotrimazole topical Patient was indicated to avoid tight open shoes and try to wear diabetic shoes Tinea pedis, right foot Clotrimazole twice a day Diabetes mellitus Sliding scale insulin in addition to her home regimen diabetic diet Hyponatremia, possible chronic -IV fluids infusion with normal saline -recheck sodium level in the morning Status post kidney transplant in November of 2015 Dr. Logan is aware of patient admission His phone number is [phone] Watch creatinine Continue prednisone, Mycophenolate, and Tacrolimus GERD continue pantoprazole Lovenox for DVT prophylaxis She spoke with
[2017-04-01] MEDS: Acetaminophen 325 MG Tab PO PRN (15:26)
[2017-04-02] MEDS: ceFAZolin 1 GM in Premix Bag 1 BAG IV SCH ×3 (00:52→16:44)
[2017-04-02 06:53] LABS: CHLORIDE,CL 108 mmol/L (101-111); SODIUM,NA 137 mmol/L (135-145)
[2017-04-02] MEDS: Insulin Aspart 100 Units/ML 3 ML Pen SUBCUT SCH ×7 (07:55→21:38)
[2017-04-02] MEDS: Insulin Detemir 100 Units/ML 3 ML Pen SUBCUT SCH ×2 (09:48→21:35)
[2017-04-02] MEDS: Enoxaparin 40 MG/0.4 ML Syringe SUBCUT SCH (09:49)
[2017-04-02] MEDS: TACROLIMUS 4 MG PO SCH ×2 (09:50→21:12)
[2017-04-02] MEDS: Pantoprazole 40 MG Tab.CR PO SCH (09:51)
[2017-04-02] MEDS: atorvaSTATin 20 MG Tab PO SCH (09:51)
[2017-04-02] MEDS: predniSONE 5 MG Tab PO SCH (09:52)
[2017-04-02] MEDS: Clotrimazole 1% Crm 30 GM Tube TOP SCH ×2 (09:54→21:14)
[2017-04-02] MEDS: Isopropyl Myristate/Mineral Oil/Water Lotion 240 ML Bottle TOP SCH (10:06)
[2017-04-02] MEDS: Acetaminophen 325 MG Tab PO PRN (10:15)
--- NOTE | 2017-04-02 10:51 | PCM.PN ---
- General Info Date of Service: 04/02/17 Admission Dx/Problem (Free Text): Admission Diagnosis/Problem Admission Diagnosis/Problem Cellulitis Subjective Update: patient states that she is feeling better. Her right leg redness and pain improved. Tylenol is helping the pain and did not cause any side effects. She denies fever, chills, nausea, vomiting, abdominal pain, or neck symptoms, unilateral weakness, or any other symptoms - Patient Data Vitals - most recent: Last Vital Signs Temp 36.9 C 04/02/17 07:00 Pulse 76 04/02/17 07:00 Resp 20 04/02/17 07:00 BP 140/59 L 04/02/17 07:00 Pulse Ox 99 04/02/17 07:00 Weight - most recent: 74.48 kg I&O - last 24 hours: Intake & Output 04/01/17 04/02/17 04/02/17 22:59 06:59 14:59 Intake Total 1377 615 200 Output Total 700 600 900 Balance 677 15 -700 Lab Results last 24 hrs: Laboratory Results - last 24 hr 04/01/17 04/01/17 04/01/17 Range/Units 11:11 17:02 21:02 WBC (5.0-10.0) 10^3/uL RBC (4.2-5.4) 10^6/uL Hgb (12.0-16.0) g/dL Hct (37.0-47.0) % MCV (80-100) fL MCH (27.0-34.0) pg MCHC (33.0-35.0) g/dL Plt Count (150-450) 10^3/uL Neut % (Auto) (42.2-75.2) % Lymph % (Auto) (20.5-50.1) % [place] % (Auto) (2-8) % Eos % (Auto) (1.0-3.0) % Baso % (Auto) (0.0-1.0) % Sodium (135-145) mmol/L Potassium (3.6-5.0) mmol/L Chloride (101-111) mmol/L Carbon Dioxide (21.0-31.0) mmol/L Anion Gap BUN (7-18) mg/dL Creatinine (0.6-1.3) mg/dL Est Cr Clr Drug Dosing mL/min Estimated GFR (MDRD) Glucose (74-105) mg/dL POC Glucose 218 H 85 129 H (70-105) mg/dl Calcium (8.4-10.2) mg/dl C-Reactive Protein (0.0-1.3) mg/dL 04/02/17 04/02/17 04/02/17 Range/Units 06:18 06:18 06:18 WBC 6.8 (5.0-10.0) 10^3/uL RBC 3.65 L (4.2-5.4) 10^6/uL Hgb 10.1 L (12.0-16.0) g/dL Hct 32.0 L (37.0-47.0) % MCV 87.7 (80-100) fL MCH 27.7 (27.0-34.0) pg MCHC 31.6 L (33.0-35.0) g/dL Plt Count 215 (150-450) 10^3/uL Neut % (Auto) 76.6 H (42.2-75.2) % Lymph % (Auto) 10.8 L (20.5-50.1) % [place] % (Auto) 11.5 H (2-8) % Eos % (Auto) 1.0 (1.0-3.0) % Baso % (Auto) 0.1 (0.0-1.0) % Sodium 137 (135-145) mmol/L Potassium 3.8 (3.6-5.0) mmol/L Chloride 108 (101-111) mmol/L Carbon Dioxide 25.0 (21.0-31.0) mmol/L Anion Gap 7.8 BUN 14 (7-18) mg/dL Creatinine 0.8 (0.6-1.3) mg/dL Est Cr Clr Drug Dosing 70.37 mL/min Estimated GFR (MDRD) > 60 Glucose 90 (74-105) mg/dL POC Glucose (70-105) mg/dl Calcium 8.3 L (8.4-10.2) mg/dl C-Reactive Protein 6.0 H (0.0-1.3) mg/dL 04/02/17 Range/Units 07:50 WBC (5.0-10.0) 10^3/uL RBC (4.2-5.4) 10^6/uL Hgb (12.0-16.0) g/dL Hct (37.0-47.0) % MCV (80-100) fL MCH (27.0-34.0) pg MCHC (33.0-35.0) g/dL Plt Count (150-450) 10^3/uL Neut % (Auto) (42.2-75.2) % Lymph % (Auto) (20.5-50.1) % [place] % (Auto) (2-8) % Eos % (Auto) (1.0-3.0) % Baso % (Auto) (0.0-1.0) % Sodium (135-145) mmol/L Potassium (3.6-5.0) mmol/L Chloride (101-111) mmol/L Carbon Dioxide (21.0-31.0) mmol/L Anion Gap BUN (7-18) mg/dL Creatinine (0.6-1.3) mg/dL Est Cr Clr Drug Dosing mL/min Estimated GFR (MDRD) Glucose (74-105) mg/dL POC Glucose 86 (70-105) mg/dl Calcium (8.4-10.2) mg/dl C-Reactive Protein (0.0-1.3) mg/dL Med Orders - Current: Current Medications Acetaminophen (Tylenol) 650 mg PO Q6H PRN PRN Reason: mild to moderate pain Last Admin: 04/02/17 10:15 Dose: 650 mg Atorvastatin Calcium (Lipitor) 20 mg PO DAILY [facility] Last Admin: 04/02/17 09:51 Dose: 20 mg Clotrimazole (Lotrimin Af 1% Crm) 0 gm TOP BID [facility] Last Admin: 04/02/17 09:54 Dose: 1 applic Docusate Sodium (Colace) 100 mg PO BID PRN PRN Reason: Constipation Emollient Ointment (Hydrocerin Lotion) 0 ml TOP DAILY [facility] Last Admin: 04/02/17 10:06 Dose: 1 applic Enoxaparin Sodium (Lovenox) 40 mg SUBCUT DAILY [facility] Last Admin: 04/02/17 09:49 Dose: 40 mg Cefazolin Sodium/Dextrose 1 gm (/ Premix) 50 mls @ 100 mls/hr IV Q8H [facility] Last Admin: 04/02/17 09:46 Dose: 100 mls/hr Vancomycin HCl 1 gm/ Sodium (Chloride) 250 mls @ 166.667 mls/hr IV Q12H [facility] Last Admin: 04/02/17 10:17 Dose: 166.667 mls/hr Insulin Aspart (Novolog) 0 unit SUBCUT QIDACANDBED [facility] PRN Reason: Protocol Last Admin: 04/02/17 07:55 Dose: Not Given Insulin Aspart (Novolog) 0 unit SUBCUT TIDMEALS [facility] Last Admin: 04/02/17 08:02 Dose: 10 units Insulin Detemir (Levemir) 0 unit SUBCUT BID [facility] Last Admin: 04/02/17 09:48 Dose: 14 units Morphine Sulfate (Morphine) 2 mg IVPUSH Q2H PRN PRN Reason: Pain (severe 7-10) Mycophenolate Mofetil (Cellcept) 500 mg PO BID@1100,2300 [facility] Last Admin: 04/01/17 23:02 Dose: 500 mg Ondansetron HCl (Zofran) 4 mg IVPUSH Q6H PRN PRN Reason: Nausea/Vomiting Oxycodone HCl (Oxycodone) 5 mg PO Q6H PRN PRN Reason: moderate to sever pain Pantoprazole Sodium (Protonix) 40 mg PO DAILY [facility] Last Admin: 04/02/17 09:51 Dose: 40 mg Tacrolimus 4 Mg (Own Med) 0 each PO BID [facility] Last Admin: 04/02/17 09:50 Dose: 1 each Polyethylene Glycol (Miralax) 17 gm PO DAILY PRN PRN Reason: Constipation Prednisone (Prednisone) 5 mg PO DAILY [facility] Last Admin: 04/02/17 09:52 Dose: 5 mg Vancomycin HCl (Pharmacy To Dose - Vancomycin) 1 dose .XX ASDIRECTED [facility] Zolpidem Tartrate (Ambien) 5 mg PO BEDTIME PRN PRN Reason: Sleep Discontinued Medications Acetaminophen (Tylenol) 650 mg PO Q4H PRN PRN Reason: Pain (Mild 1-3)/fever Hydrocodone Bitart/Acetaminophen ([place] 325-10 Mg) 1 tab PO Q4H PRN PRN Reason: Pain (moderate 4-6) Diphenhydramine HCl (Benadryl) 25 mg PO ONETIME ONE Stop: 03/31/17 22:16 Last Admin: 03/31/17 22:28 Dose: 25 mg Famotidine (Pepcid) 20 mg IVPUSH ONETIME ONE Stop: 03/31/17 22:15 Last Admin: 03/31/17 22:28 Dose: 20 mg Vancomycin HCl 1 gm/ Sodium (Chloride) 250 mls @ 167 mls/hr IV ONETIME ONE Stop: 03/31/17 23:41 Last Admin: 03/31/17 22:30 Dose: 167 mls/hr Sodium Chloride (Normal Saline) 1,000 mls @ 125 mls/hr IV ASDIRECTED [facility] Stop: 04/01/17 18:00 Last Admin: 04/01/17 09:22 Dose: 125 mls/hr Cefazolin Sodium/Dextrose 1 gm (/ Premix) 50 mls @ 100 mls/hr IV Q8HR [facility] Vancomycin HCl 1 gm/ Sodium (Chloride) 250 mls @ 166.667 mls/hr IV Q12H [facility] Last Admin: 04/01/17 22:01 Dose: 166.667 mls/hr Insulin Aspart (Novolog) 0 unit SUBCUT TID [facility] Last Admin: 04/01/17 08:25 Dose: 10 units Mycophenolate Mofetil (Cellcept) 500 mg PO BID [facility] Last Admin: 04/01/17 11:28 Dose: Not Given Non-Formulary Medication (Cetirizine [Zyrtec]) 10 mg PO DAILY PRN PRN Reason: Allergies - Exam General: alert, oriented, cooperative, no acute distress. No: mild distress, moderate distress, severe distress, sedated, lethargic, obtunded HEENT: Pupils equal, Pupils reactive, EOMI, Mucous membr. moist/pink Neck: supple Lungs: Clear to auscultation, Normal respiratory effort Cardiovascular: Regular Rate, Regular Rhythm Abdomen: bowel sounds present, soft, no tenderness, no distension (Female) Exam: Deferred Back Exam: Normal Inspection, Full Range of Motion Extremities: normal pulses, no clubbing, no cyanosis, no calf tenderness, other (normal capillary refills in sensation in toes bilaterally) Skin: warm, other (right leg redness and swelling improved. Right toes ulcers are superfecial and improving. the between the right toes area is improving ) Neurological: no new focal deficit Psy/Mental Status: alert, normal affect, normal mood - Problem List & Annotations (1) Cellulitis of right leg SNOMED Code(s): 924290070 Code(s): L03.115 - CELLULITIS OF RIGHT LOWER LIMB Status: Acute Priority : High Current Visit: Yes (2) Right foot ulcer SNOMED Code(s): 08737129 Code(s): L97.519 - NON-PRS CHRONIC ULCER OTH PRT RIGHT FOOT W UNSP SEVERITY Status: Acute Priority: High Current Visit: Yes (3) Diabetic ulcer of right foot SNOMED Code(s): 834539295 Code(s): E11.621 - TYPE 2 DIABETES MELLITUS WITH FOOT ULCER; L97.519 - NON- PRS CHRONIC ULCER OTH PRT RIGHT FOOT W UNSP SEVERITY Status: Chronic Current Visit: Yes (4) Tinea pedis of right foot SNOMED Code(s): 7071392 Code(s): B35.3 - TINEA PEDIS Status: Acute Current Visit: Yes (5) Diabetes mellitus SNOMED Code(s): 69118020 Code(s): E11.9 - TYPE 2 DIABETES MELLITUS WITHOUT COMPLICATIONS Status: Chronic Current Visit: Yes Qualifiers: Diabetes mellitus type: type 2 Diabetes mellitus complication status: with kidney complications Diabetes mellitus complication detail: with other kidney complication Diabetes mellitus halfway insulin use: without halfway use Qualified Code(s): E11.29 - Type 2 diabetes mellitus with other diabetic kidney complication (6) Kidney transplant recipient SNOMED Code(s): 481584855 Code(s): Z94.0 - KIDNEY TRANSPLANT STATUS Status: Chronic Current Visit: Yes (7) Hyponatremia SNOMED Code(s): 25721716 Code(s): E87.1 - HYPO-OSMOLALITY AND HYPONATREMIA Status: Chronic Current Visit: No (8) Acute kidney injury SNOMED Code(s): 90743699 Code(s): N17.9 - ACUTE KIDNEY FAILURE, UNSPECIFIED Status: Acute Current Visit: Yes - Problem List Review Problem List Initiated/Reviewed/Updated: Yes - My Orders Last 24 Hours: My Active Orders 04/01/17 11:00 Mycophenolate Mofetil [Cellcept] 500 mg PO BID@1100,2300 04/01/17 11:37 Acetaminophen [Tylenol] 650 mg PO Q6H PRN 04/01/17 11:44 Communication Order [RC] ROUTINE 04/01/17 18:00 Insulin Aspart [NovoLOG] 0 unit SUBCUT TIDMEALS 04/02/17 02:46 Communication Order [RC] 04/02/17 10:00 I-Prop Myr/Mineral Oil/Water [Hydrocerin Lotion] 0 ml TOP DAILY Vancomycin 1 gm Sodium Chloride 0.9% [Normal Saline] 250 ml IV Q12H - Plan Plan:: Right foot cellulitis Gram stain and wound culture are negative Lymphedema wrap -awaiting blood culture results -vancomycin and Ancef IV pharmacy to dose Vancomycin -blood cultures continue to be negative tomorrow then she can be discharged on oral antibiotics such doxycycline Acute kidney injury, mild most likely from dehydration Her creatinine on admission was 1.2 -today the creatinine is 0.8 -continue to monitor creatinine Right leg pain From cellulitis Tylenol and Oxycodone as needed for pain Diabetic foot ulcer Control blood glucose Dressing IV antibiotic Clotrimazole topical Patient was indicated to avoid tight open shoes and try to wear diabetic shoes Tinea pedis, right foot Clotrimazole twice a day Diabetes mellitus Sliding scale insulin in addition to her home regimen diabetic diet Hyponatremia, possible chronic -IV fluids infusion with normal saline -recheck sodium level in the morning Status post kidney transplant in November of 2015 Dr. Logan is aware of patient admission His phone number is [phone] Watch creatinine Continue prednisone, Mycophenolate, and Tacrolimus GERD continue pantoprazole Lovenox for DVT prophylaxis She spoke with
[2017-04-02] MEDS: Mycophenolate Mofetil 250 MG Cap PO SCH ×2 (12:10→23:03)
[2017-04-03] MEDS: ceFAZolin 1 GM in Premix Bag 1 BAG IV SCH ×2 (02:11→09:18)
[2017-04-03 07:03] LABS: CHLORIDE,CL 107 mmol/L (101-111); SODIUM,NA 138 mmol/L (135-145)
[2017-04-03] MEDS: Insulin Aspart 100 Units/ML 3 ML Pen SUBCUT SCH ×4 (08:21→12:37)
[2017-04-03] MEDS: Insulin Detemir 100 Units/ML 3 ML Pen SUBCUT SCH (08:23)
[2017-04-03] MEDS: atorvaSTATin 20 MG Tab PO SCH (09:16)
[2017-04-03] MEDS: predniSONE 5 MG Tab PO SCH (09:16)
[2017-04-03] MEDS: TACROLIMUS 4 MG PO SCH (09:16)
[2017-04-03] MEDS: Pantoprazole 40 MG Tab.CR PO SCH (09:16)
[2017-04-03] MEDS: Enoxaparin 40 MG/0.4 ML Syringe SUBCUT SCH (09:17)
[2017-04-03] MEDS ORDERED: Potassium Chloride 10 MEQ Tab.ER PO ONE (09:31)
[2017-04-03] MEDS: Isopropyl Myristate/Mineral Oil/Water Lotion 240 ML Bottle TOP SCH (09:55)
[2017-04-03 11:44] VITALS: BP 130/55
[2017-04-03] MEDS: Mycophenolate Mofetil 250 MG Cap PO SCH (11:51)
[2017-04-03] MEDS: Clotrimazole 1% Crm 30 GM Tube TOP SCH (11:53)
--- NOTE | 2017-04-03 13:01 | PCM.DCSUM1 ---
Discharge Summary - Hospital Course Free Text/Narrative:: 51-year-old female with past medical history of diabetes mellitus, renal failure status post kidney transplant in November of 2015, GERD, hypertension presented the emergency room for right lower extremities redness, tenderness, and 2 open sores on the righ toe and 1 on right foot bottom. Patient stated that 6 days prior to admission she started having right leg pain and skin breakdown on both side of her right toes and right foot bottom. 3 days later she started having redness, itching, tenderness in the frontal side of her right leg and was complaining of nausea, chills, headache but no fever. On she went to the clinic and was prescribed Keflex and cetrizine. however her right leg redness got worse so she came to the emergency room. In the emergency room her WBC 12.1 with left shift, sodium 131, BUN 33, creatinine 1.2, glucose 267, lactic acid 1.2, liver enzymes are normal. wound and blood cultures were obtained and are negative. her ER provider spoke to Dr. Sung, her kidney transplant physician at [facility] in [place], who agreed to vancomycin. on admission vancomycin was continued and Ancef was added. patient right leg markedly improved. patient had an uneventful stay. Today She denies fever, chills, nausea, vomiting, abdominal pain, or neck symptoms, unilateral weakness , or any other symptoms. she is discharged on doxycycline orally and clotrimazole topical in addition to her home medications Plan of care during hospitalization: Right foot cellulitis Gram stain and wound culture are negative Lymphedema wrap blood culture Did not grow organism for today's vancomycin and Ancef IV pharmacy to dose Vancomycin Acute kidney injury, mild most likely from dehydration Her creatinine on admission was 1.2 today the creatinine is 0.8 Right leg pain From cellulitis Tylenol and Oxycodone as needed for pain Diabetic foot ulcer Control blood glucose Dressing IV antibiotic Clotrimazole topical Patient was indicated to avoid tight open shoes and try to wear diabetic shoes Tinea pedis, right foot Clotrimazole twice a day Diabetes mellitus Sliding scale insulin in addition to her home regimen diabetic diet Hyponatremia, possible chronic treated initially with IV fluids infusion with normal saline today's sodium is normal hypokalemia, mild Replace orally Status post kidney transplant in November of 2015 Dr. Logan is aware of patient admission His phone number is [phone] Watch creatinine Continue prednisone, Mycophenolate, and Tacrolimus GERD continue pantoprazole Lovenox for DVT prophylaxis She spoke with - Discharge Data Discharge Date: 04/03/17 Discharge Disposition: Home, Self-Care 01 Condition: Good - Discharge Diagnosis/Problem(s) (1) Cellulitis of right leg SNOMED Code(s): 113868117 ICD Code: L03.115 - CELLULITIS OF RIGHT LOWER LIMB Status: Acute Priority : High Current Visit: Yes (2) Right foot ulcer SNOMED Code(s): 20972765 ICD Code: L97.519 - NON-PRS CHRONIC ULCER OTH PRT RIGHT FOOT W UNSP SEVERITY Status: Acute Priority: High Current Visit: Yes (3) Diabetic ulcer of right foot SNOMED Code(s): 868669082 ICD Code: E11.621 - TYPE 2 DIABETES MELLITUS WITH FOOT ULCER; L97.519 - NON- PRS CHRONIC ULCER OTH PRT RIGHT FOOT W UNSP SEVERITY Status: Chronic Current Visit: Yes (4) Tinea pedis of right foot SNOMED Code(s): 0035751 ICD Code: B35.3 - TINEA PEDIS Status: Acute Current Visit: Yes (5) Diabetes mellitus SNOMED Code(s): 78943412 ICD Code: E11.9 - TYPE 2 DIABETES MELLITUS WITHOUT COMPLICATIONS Status: Chronic Current Visit: Yes Qualifiers: Diabetes mellitus type: type 2 Diabetes mellitus complication status: with kidney complications Diabetes mellitus complication detail: with other kidney complication Diabetes mellitus skilled nursing insulin use: without skilled nursing use Qualified Code(s): E11.29 - Type 2 diabetes mellitus with other diabetic kidney complication (6) Kidney transplant recipient SNOMED Code(s): 869728954 ICD Code: Z94.0 - KIDNEY TRANSPLANT STATUS Status: Chronic Current Visit : Yes (7) Hyponatremia SNOMED Code(s): 11192566 ICD Code: E87.1 - HYPO-OSMOLALITY AND HYPONATREMIA Status: Chronic Current Visit: No (8) Acute kidney injury SNOMED Code(s): 39567479 ICD Code: N17.9 - ACUTE KIDNEY FAILURE, UNSPECIFIED Status: Acute Current Visit: Yes - Patient Summary/Data Consults: Consultations 04/01/17 00:23 OT Evaluation and Treatment [CONS] Routine - Patient Instructions Diet: Heart Healthy Diet, Diabetic Diet Activity: As Tolerated Showering/Bathing: March Shower Notify Provider of: Fever, Increased Pain, Swelling and Redness, Drainage, Nausea and/or Vomiting - Discharge Plan Prescriptions/Med Rec: Doxycycline [Vibramycin] 100 mg PO Q12HR #20 cap Clotrimazole [Lotrimin AF 1% Crm] 1 applic TOP BID 10 Days Home Medications: Home Meds Cetirizine [ZyrTEC] 10 mg PO DAILY PRN 03/31/17 [History] Insulin Aspart [NovoLOG] 10 units SUBCUT TID 03/31/17 [History] Insulin Detemir [Levemir] 14 unit SUBCUT BID 03/31/17 [History] Mycophenolate Mofetil [Cellcept] 500 mg PO BID 03/31/17 [History] Pantoprazole Sodium [Protonix] 40 mg PO DAILY 03/31/17 [History] atorvaSTATin [Lipitor] 20 mg PO DAILY 03/31/17 [History] predniSONE [Prednisone] 5 mg PO DAILY 03/31/17 [History] Tacrolimus 4 mg PO Q12H 04/01/17 [History] Clotrimazole [Lotrimin AF 1% Crm] 1 applic TOP BID 10 Days 04/03/17 [Rx] Doxycycline [Vibramycin] 100 mg PO Q12HR #20 cap 04/03/17 [Rx] Patient Handouts: Acute Kidney Injury, Diabetes and Foot Care, Athlete's Foot, [id number], Cellulitis, Adult, [id number] Referrals: PCP,Unobtain [Primary Care Provider] - - General Info Admission Dx/Problem (Free Text: Admission Diagnosis/Problem Admission Diagnosis/Problem Cellulitis - Review of Systems General: Reports: No Symptoms HEENT: Reports: no symptoms Pulmonary: Reports: no symptoms Cardiovascular: Reports: No Symptoms Gastrointestinal: Reports: No symptoms Genitourinary: Reports: no symptoms Musculoskeletal: Reports: no symptoms Neurological: Reports: No Symptoms Psychiatric: Reports: no symptoms - Patient Data Vitals - Most Recent: Last Vital Signs Temp 36.4 C 04/03/17 11:00 Pulse 81 04/03/17 11:00 Resp 20 04/03/17 11:00 BP 130/55 L 04/03/17 11:00 Pulse Ox 96 04/03/17 11:00 Weight - Most Recent: 74.854 kg I&O - Last 24 hours: Intake & Output 04/02/17 04/03/17 04/03/17 22:59 06:59 14:59 Intake Total 1400 536 Output Total 550 700 Balance 850 -164 Lab Results - Last 24 hrs: Laboratory Results - last 24 hr 04/02/17 04/02/17 04/02/17 Range/Units 16:53 21:07 21:35 Sodium (135-145) mmol/L Potassium (3.6-5.0) mmol/L Chloride (101-111) mmol/L Carbon Dioxide (21.0-31.0) mmol/L Anion Gap BUN (7-18) mg/dL Creatinine (0.6-1.3) mg/dL Est Cr Clr Drug Dosing mL/min Estimated GFR (MDRD) Glucose (74-105) mg/dL POC Glucose 208 H 216 H (70-105) mg/dl Calcium (8.4-10.2) mg/dl Vancomycin Trough 15.7 H (10-15) ug/ml 04/03/17 04/03/17 04/03/17 Range/Units 06:00 08:00 11:05 Sodium 138 (135-145) mmol/L Potassium 3.5 L (3.6-5.0) mmol/L Chloride 107 (101-111) mmol/L Carbon Dioxide 26.0 (21.0-31.0) mmol/L Anion Gap 8.5 BUN 13 (7-18) mg/dL Creatinine 0.8 (0.6-1.3) mg/dL Est Cr Clr Drug Dosing 70.37 mL/min Estimated GFR (MDRD) > 60 Glucose 76 (74-105) mg/dL POC Glucose 84 126 H (70-105) mg/dl Calcium 8.6 (8.4-10.2) mg/dl Vancomycin Trough (10-15) ug/ml Med Orders - Current: Current Medications Acetaminophen (Tylenol) 650 mg PO Q6H PRN PRN Reason: mild to moderate pain Last Admin: 04/02/17 10:15 Dose: 650 mg Atorvastatin Calcium (Lipitor) 20 mg PO DAILY [facility] Last Admin: 04/03/17 09:16 Dose: 20 mg Clotrimazole (Lotrimin Af 1% Crm) 0 gm TOP BID [facility] Last Admin: 04/03/17 11:53 Dose: 1 applic Docusate Sodium (Colace) 100 mg PO BID PRN PRN Reason: Constipation Emollient Ointment (Hydrocerin Lotion) 0 ml TOP DAILY [facility] Last Admin: 04/03/17 09:55 Dose: 1 applic Enoxaparin Sodium (Lovenox) 40 mg SUBCUT DAILY [facility] Last Admin: 04/03/17 09:17 Dose: 40 mg Cefazolin Sodium/Dextrose 1 gm (/ Premix) 50 mls @ 100 mls/hr IV Q8H [facility] Last Admin: 04/03/17 09:18 Dose: 100 mls/hr Vancomycin HCl 1 gm/ Sodium (Chloride) 250 mls @ 166.667 mls/hr IV Q12H [facility] Last Admin: 04/03/17 11:28 Dose: Not Given Insulin Aspart (Novolog) 0 unit SUBCUT QIDACANDBED [facility] PRN Reason: Protocol Last Admin: 04/03/17 12:37 Dose: Not Given Insulin Aspart (Novolog) 0 unit SUBCUT TID@0700,1100,1700 [facility] Last Admin: 04/03/17 11:52 Dose: 10 units Insulin Detemir (Levemir) 0 unit SUBCUT BID [facility] Last Admin: 04/03/17 08:23 Dose: 14 units Morphine Sulfate (Morphine) 2 mg IVPUSH Q2H PRN PRN Reason: Pain (severe 7-10) Mycophenolate Mofetil (Cellcept) 500 mg PO BID@1100,2300 [facility] Last Admin: 04/03/17 11:51 Dose: 500 mg Ondansetron HCl (Zofran) 4 mg IVPUSH Q6H PRN PRN Reason: Nausea/Vomiting Oxycodone HCl (Oxycodone) 5 mg PO Q6H PRN PRN Reason: moderate to sever pain Pantoprazole Sodium (Protonix) 40 mg PO DAILY [facility] Last Admin: 04/03/17 09:16 Dose: 40 mg Tacrolimus 4 Mg (Own Med) 0 each PO BID [facility] Last Admin: 04/03/17 09:16 Dose: 4 each Polyethylene Glycol (Miralax) 17 gm PO DAILY PRN PRN Reason: Constipation Prednisone (Prednisone) 5 mg PO DAILY [facility] Last Admin: 04/03/17 09:16 Dose: 5 mg Vancomycin HCl (Pharmacy To Dose - Vancomycin) 1 dose .XX ASDIRECTED [facility] Zolpidem Tartrate (Ambien) 5 mg PO BEDTIME PRN PRN Reason: Sleep Discontinued Medications Acetaminophen (Tylenol) 650 mg PO Q4H PRN PRN Reason: Pain (Mild 1-3)/fever Hydrocodone Bitart/Acetaminophen ([place] 325-10 Mg) 1 tab PO Q4H PRN PRN Reason: Pain (moderate 4-6) Diphenhydramine HCl (Benadryl) 25 mg PO ONETIME ONE Stop: 03/31/17 22:16 Last Admin: 03/31/17 22:28 Dose: 25 mg Famotidine (Pepcid) 20 mg IVPUSH ONETIME ONE Stop: 03/31/17 22:15 Last Admin: 03/31/17 22:28 Dose: 20 mg Vancomycin HCl 1 gm/ Sodium (Chloride) 250 mls @ 167 mls/hr IV ONETIME ONE Stop: 03/31/17 23:41 Last Admin: 03/31/17 22:30 Dose: 167 mls/hr Sodium Chloride (Normal Saline) 1,000 mls @ 125 mls/hr IV ASDIRECTED [facility] Stop: 04/01/17 18:00 Last Admin: 04/01/17 09:22 Dose: 125 mls/hr Cefazolin Sodium/Dextrose 1 gm (/ Premix) 50 mls @ 100 mls/hr IV Q8HR [facility] Vancomycin HCl 1 gm/ Sodium (Chloride) 250 mls @ 166.667 mls/hr IV Q12H [facility] Last Admin: 04/01/17 22:01 Dose: 166.667 mls/hr Insulin Aspart (Novolog) 0 unit SUBCUT TID [facility] Last Admin: 04/01/17 08:25 Dose: 10 units Insulin Aspart (Novolog) 0 unit SUBCUT QIDACANDBED [facility] PRN Reason: Protocol Last Admin: 04/02/17 17:06 Dose: 4 units Insulin Aspart (Novolog) 0 unit SUBCUT TIDMEALS [facility] Last Admin: 04/02/17 17:06 Dose: 10 units Mycophenolate Mofetil (Cellcept) 500 mg PO BID [facility] Last Admin: 04/01/17 11:28 Dose: Not Given Non-Formulary Medication (Cetirizine [Zyrtec]) 10 mg PO DAILY PRN PRN Reason: Allergies Potassium Chloride (Klor-Con 10) 40 meq PO ONETIME ONE Stop: 04/03/17 09:32 Last Admin: 04/03/17 09:54 Dose: 40 meq - Exam General: Reports: alert, oriented, cooperative. Denies: no acute distress, mild distress, moderate distress, severe distress, sedated, lethargic HEENT: Reports: Pupils equal, Pupils reactive, EOMI, Mucous membr. moist/pink Neck: Reports: supple, trachea midline, no JVD Lungs: Reports: Clear to auscultation, Normal respiratory effort Cardiovascular: Reports: Regular Rate, Regular Rhythm Abdomen: Reports: bowel sounds present, soft, no tenderness, no distension (Female) Exam: Deferred Rectal (Female) Exam: Deferred Back Exam: Reports: Normal Inspection, Full Range of Motion Extremities: Reports: no edema, normal pulses, no clubbing, no cyanosis, no calf tenderness, other (right leg erythema and tenderness markedly improved. Her right fourth toe superficial ulcer and right plantar small superficial ulcer are improving) Skin: Reports: warm, dry Wound/Incisions: Reports: healing well Neurological: Reports: no new focal deficit Psy/Mental Status: Reports: alert, normal affect, normal mood *Q Meaningful Use (DIS) - VTE *Q VTE Criteria *Q: - Stroke *Q Stroke Criteria *Q: - AMI *Q AMI Criteria *Q:
== END 2017-04-03 14:00 | disposition home or self-care (01) | DRG 603 ==
LOC: DL.ED 19:59 → DL.MS 22:22 → UNDOADMIN 22:22 → DL.MS 23:51
PROVIDERS: ADMIT Family Medicine; ATTEND Family Medicine
DX: L03.115 Cellulitis of right lower limb (principal); Z94.0 Kidney transplant status; E87.1 Hypo-osmolality and hyponatremia; N17.9 Acute kidney failure, unspecified; E11.621 Type 2 diabetes mellitus with foot ulcer; L97.519 Non-pressure chronic ulcer of other part of right foot with unspecified severity; K21.9 Gastro-esophageal reflux disease without esophagitis; I10 Essential (primary) hypertension; E86.0 Dehydration; B35.3 Tinea pedis; Z79.01 Long term (current) use of anticoagulants; Z79.52 Long term (current) use of systemic steroids; Z79.899 Other long term (current) drug therapy
CPT/HCPCS: 36415; 80048; 80053; 80202; 82962; 83605; 85025; 86140; 87040; 87070; 87205; 96365; 96366; 96375; 97140-GO; 97165-GO; 99284; A9270-GY; J0690; J1650; J1815-GY; J3370; J7030; J7050; S0028

== ENCOUNTER 2020-11-08 17:14 | Emergency (ER) | payer OTHER, MEDICARE ==
[2020-11-08 17:07] VITALS: BP 94/37; PULSE 82
[2020-11-08 18:06] LABS: ANION GAP 13.9 mEq/L (7-13)
--- NOTE | 2020-11-08 18:22 | EDM.PDOC ---
ED HPI GENERAL MEDICAL PROBLEM - General Chief Complaint: General Stated Complaint: [facility] Time Seen by Provider: 11/08/20 18:00 Source of Information: Reports: Patient History Limitations: Reports: No Limitations - History of Present Illness INITIAL COMMENTS - FREE TEXT/NARRATIVE: This 54 yo female patient was brought to the ED due to progressive weakness and shortness of breath. The patient reports she was diagnosed with COVID on 10/21/20. The patient reports she got out of her quarantine on 11/02/20, but she does not feel normal yet. The patient reports she had a difficult time getting ready today and missed her appointment at the [facility] at 1430. Onset: Gradual Duration: Day(s):, Constant Location: Reports: Generalized Quality: Reports: Other Severity: Moderate Improves with: Reports: None Worsens with: Reports: None Context: Reports: Other Associated Symptoms: Reports: Cough, Malaise, Shortness of Breath - Related Data Allergies Allergy/AdvReac Type Severity Reaction Status Date / Time acetaminophen Allergy Severe Cannot Verified 11/08/20 17:07 Remember Home Meds: Home Meds Cetirizine [ZyrTEC] 10 mg PO DAILY PRN 03/31/17 [History] Insulin Aspart [NovoLOG] 10 units SUBCUT TID 03/31/17 [History] Insulin Detemir [Levemir] 14 unit SUBCUT BID 03/31/17 [History] Pantoprazole Sodium [Protonix] 40 mg PO DAILY 03/31/17 [History] atorvaSTATin [Lipitor] 20 mg PO DAILY 03/31/17 [History] mycophenolate mofetiL [Cellcept] 500 mg PO BID 03/31/17 [History] predniSONE [Prednisone] 5 mg PO DAILY 03/31/17 [History] Tacrolimus 4 mg PO Q12H 04/01/17 [History] Clotrimazole [Lotrimin AF 1% Crm] 1 applic TOP BID 10 Days tube 04/03/17 [Rx] Doxycycline [Vibramycin] 100 mg PO Q12HR #20 cap 04/03/17 [Rx] Past Medical History HEENT History: Reports: Impaired Vision Cardiovascular History: Reports: High Cholesterol, Hypertension Respiratory History: Reports: None Gastrointestinal History: Reports: None Genitourinary History: Reports: Dialysis, Other (See Below) Other Genitourinary History: kidney transplant 2015 [employer]ORDINATOR History: Reports: , Spontaneous Musculoskeletal History: Reports: None Neurological History: Reports: None Psychiatric History: Reports: None Endocrine/Metabolic History: Reports: Diabetes, Type II Hematologic History: Reports: Anemia Immunologic History: Reports: Solid Organ Transplant Oncologic (Cancer) History: Reports: None Dermatologic History: Reports: None - Infectious Disease History Infectious Disease History: Reports: Measles - Past Surgical History Cardiovascular Surgical History: Reports: Other (See Below) Other Cardiovascular Surgeries/Procedures: left AC fistula GI Surgical History: Reports: None Female Surgical History: Reports: Section, Hysterectomy Other Female Surgeries/Procedures: Kidney transplant Musculoskeletal Surgical History: Reports: None Social & Family History - Family History Family Medical History: No Pertinent Family History - Tobacco Use Tobacco Use Status *Q: Never Tobacco User - Caffeine Use Caffeine Use: Reports: Tea - Recreational Drug Use Recreational Drug Use: No ED ROS GENERAL - Review of Systems Review Of Systems: Comprehensive ROS is negative, except as noted in HPI. ED EXAM, GENERAL - Physical Exam Exam: See Below Exam Limited By: No Limitations General Appearance: Alert, WD/WN, Moderate Distress Eye Exam: Bilateral Eye: EOMI, Normal Inspection, PERRL Ears: Normal External Exam, Normal Canal, Hearing Grossly Normal, Normal TMs Nose: Normal Inspection, Normal Mucosa, No Blood Throat/Mouth: Normal Inspection, Normal Lips, Normal Teeth, Normal Gums, Normal Oropharynx, Normal Voice, No Airway Compromise Head: Atraumatic, Normocephalic Neck: Normal Inspection, Supple, Non-Tender, Full Range of Motion Respiratory/Chest: No Respiratory Distress, Lungs Clear, Normal Breath Sounds, No Accessory Muscle Use, Chest Non-Tender Cardiovascular: Normal Peripheral Pulses, Regular Rate, Rhythm, No Edema, No Gallop, No JVD, No Murmur, No Rub GI/Abdominal: Normal Bowel Sounds, Soft, Non-Tender, No Organomegaly, No Distention, No Abnormal Bruit, No Mass (Female) Exam: Deferred Rectal (Female) Exam: Deferred Back Exam: Normal Inspection, Full Range of Motion, NT Extremities: Normal Inspection, Normal Range of Motion, Non-Tender, Normal Capillary Refill, No Pedal Edema Neurological: Alert, Oriented, CN II-XII Intact, Normal Cognition, Normal Gait, Normal Reflexes, No Motor/Sensory Deficits Psychiatric: Normal Affect, Normal Mood Skin Exam: Warm, Dry, Intact, Normal Color, No Rash Lymphatic: No Adenopathy Course - Vital Signs Last Recorded V/S: Last Vital Signs Temp 36.6 C 11/08/20 17:00 Pulse 82 11/08/20 17:00 Resp 20 11/08/20 17:00 BP 94/37 L 11/08/20 17:00 Pulse Ox 98 11/08/20 17:00 - Orders/Labs/Meds Orders: Active Orders 24 hr Category Date Time Status EKG Documentation Completion [RC] STAT Care 11/08/20 17:11 Active CULTURE BLOOD [BC] Stat Lab 11/08/20 17:29 Received Labs: Laboratory Tests 11/08/20 11/08/20 11/08/20 Range/Units 16:58 17:29 17:29 WBC 5.7 (5.0-10.0) 10^3/uL RBC 4.21 (4.2-5.4) 10^6/uL Hgb 12.0 D (12.0-16.0) g/dL Hct 34.3 L (37.0-47.0) % MCV 81.5 D (80-100) fL MCH 28.5 (27.0-34.0) pg MCHC 35.0 (33.0-35.0) g/dL Plt Count 271 (150-450) 10^3/uL Neut % (Auto) 74.9 (42.2-75.2) % Lymph % (Auto) 5.9 L (20.5-50.1) % [place] % (Auto) 18.5 H (2-8) % Eos % (Auto) 0.5 L (1.0-3.0) % Baso % (Auto) 0.2 (0.0-1.0) % Add Manual Diff Yes Neutrophils % (Manual) 77 H (42-75) % Band Neutrophils % 8 % Lymphocytes % (Manual) 4 L (20-50) % Monocytes % (Manual) 7 (2-8) % Eosinophils % (Manual) 1 (1-3) % Metamyelocytes % 3 D-Dimer, Quantitative (0-400) ng/mL Sodium 126 L (136-145) mmol/L Potassium 3.9 (3.5-5.1) mmol/L Chloride 91 L (98-107) mmol/L Carbon Dioxide 25 (21-32) mmol/L Anion Gap 13.9 H (7-13) mEq/L BUN 50 H (7-18) mg/dL Creatinine 2.71 H (0.55-1.02) mg/dL Est Cr Clr Drug Dosing 20.97 mL/min Estimated GFR (MDRD) 18 BUN/Creatinine Ratio 18.5 (No establ ref range) Glucose 352 H (74-99) mg/dL POC Glucose 367 H (70-105) mg/dl Lactic Acid (0.4-2.0) mmol/L Calcium 8.9 (8.5-10.1) mg/dL Total Bilirubin 0.5 (0.2-1.0) mg/dL AST 12 L (15-37) U/L ALT 12 L (14-59) U/L Alkaline Phosphatase 107 (46-116) U/L Troponin I 0.022 (0.000-0.056) ng/mL Total Protein 7.1 (6.4-8.2) g/dL Albumin 3.1 L (3.4-5.0) g/dL Globulin 4.0 Albumin/Globulin Ratio 0.78 11/08/20 11/08/20 Range/Units 17:29 17:29 WBC (5.0-10.0) 10^3/uL RBC (4.2-5.4) 10^6/uL Hgb (12.0-16.0) g/dL Hct (37.0-47.0) % MCV (80-100) fL MCH (27.0-34.0) pg MCHC (33.0-35.0) g/dL Plt Count (150-450) 10^3/uL Neut % (Auto) (42.2-75.2) % Lymph % (Auto) (20.5-50.1) % [place] % (Auto) (2-8) % Eos % (Auto) (1.0-3.0) % Baso % (Auto) (0.0-1.0) % Add Manual Diff Neutrophils % (Manual) (42-75) % Band Neutrophils % % Lymphocytes % (Manual) (20-50) % Monocytes % (Manual) (2-8) % Eosinophils % (Manual) (1-3) % Metamyelocytes % D-Dimer, Quantitative 1280 H (0-400) ng/mL Sodium (136-145) mmol/L Potassium (3.5-5.1) mmol/L Chloride (98-107) mmol/L Carbon Dioxide (21-32) mmol/L Anion Gap (7-13) mEq/L BUN (7-18) mg/dL Creatinine (0.55-1.02) mg/dL Est Cr Clr Drug Dosing mL/min Estimated GFR (MDRD) BUN/Creatinine Ratio (No establ ref range) Glucose (74-99) mg/dL POC Glucose (70-105) mg/dl Lactic Acid 0.7 (0.4-2.0) mmol/L Calcium (8.5-10.1) mg/dL Total Bilirubin (0.2-1.0) mg/dL AST (15-37) U/L ALT (14-59) U/L Alkaline Phosphatase (46-116) U/L Troponin I (0.000-0.056) ng/mL Total Protein (6.4-8.2) g/dL Albumin (3.4-5.0) g/dL Globulin Albumin/Globulin Ratio Departure - Departure Time of Disposition: 19:06 Disposition: DC/Tfer to [facility] 02 Condition: Fair Clinical Impression: Short of breath on exertion, Hypoxia, Elevated d-dimer, Kidney transplant recipient - Discharge Information *PRESCRIPTION DRUG MONITORING PROGRAM REVIEWED*: Not Applicable *COPY OF PRESCRIPTION DRUG MONITORING REPORT IN PATIENT MIHAI: Not Applicable Forms: Interfacility Transfer EMTALA Care Plan Goals: Discussed the patient's history, examination and lab results with Dr. Harsh Gomez. Dr. Harsh Gomez accepted the patient for continued evaluation and management. The patient will be transported by [facility]. Sepsis Event Note (ED) - Evaluation Sepsis Screening Result: No Definite Risk - Focused Exam Vital Signs: Vital Signs Temp Pulse Resp BP Pulse Ox 11/08/20 17:00 36.6 C 82 20 94/37 L 98 - My Orders Last 24 Hours: My Active Orders 11/08/20 17:11 EKG Documentation Completion [RC] STAT 11/08/20 17:29 CULTURE BLOOD [BC] Stat - Assessment/Plan Last 24 Hours: My Active Orders 11/08/20 17:11 EKG Documentation Completion [RC] STAT 11/08/20 17:29 CULTURE BLOOD [BC] Stat
== END 2020-11-08 19:45 ==
LOC: DL.ED 17:14
DX: R06.02 Shortness of breath (principal); R09.02 Hypoxemia; R79.1 Abnormal coagulation profile; I10 Essential (primary) hypertension; E78.00 Pure hypercholesterolemia, unspecified; E11.9 Type 2 diabetes mellitus without complications; Z94.0 Kidney transplant status; Z88.6 Allergy status to analgesic agent; Z79.4 Long term (current) use of insulin; Z90.710 Acquired absence of both cervix and uterus; Z79.899 Other long term (current) drug therapy
CPT/HCPCS: 36415; 80053; 82962; 83605; 84484; 85025; 85379; 87040; 93005; 99285-25

== ENCOUNTER 2024-07-26 17:17 | Emergency (ER) | payer OTHER ==
[2024-07-26] MEDS: Lidocaine 1% 5 ML VIAL INJECT ONE (18:59)
[2024-07-26] MEDS: Take Home: Sulfamethoxazole/Trimethoprim 800-160 MG Tab, 6 Tab Pack PO ONE (19:33)
[2024-07-26 20:00] VITALS: BP 151/91; PULSE 106
== END 2024-07-26 19:50 | disposition home or self-care (01) ==
LOC: DL.ED 17:17
DX: L02.212 Cutaneous abscess of back [any part, except buttock and flank] (principal); I10 Essential (primary) hypertension; E11.9 Type 2 diabetes mellitus without complications; Z90.710 Acquired absence of both cervix and uterus; Z79.4 Long term (current) use of insulin; Z79.899 Other long term (current) drug therapy; Z88.6 Allergy status to analgesic agent
CPT/HCPCS: 10060; 87635; 87804; 99283; 99284; A9270; J3490; U0002

== ENCOUNTER 2025-01-26 15:45 | Emergency (ER) | payer OTHER ==
[2025-01-26] MEDS: Sodium Chloride 0.9% 1,000 ML IV ONE ×2 (16:55→22:15)
[2025-01-26 17:11] LABS: HEMATOCRIT 31.1 % (37.0-47.0); HEMOGLOBIN 10.4 g/dL (12.0-16.0); MEAN CORPUSCULAR HEMOGLOBIN 27.2 pg (27.0-34.0); MEAN CORPUSCULAR HGB CONC 33.4 g/dL (33.0-35.0); MEAN CORPUSCULAR VOLUME 81.4 fL (80-100); PLATELET COUNT,PLT 415 10^3/uL (150-450); RED BLOOD CELL COUNT 3.82 10^6/uL (4.2-5.4); WHITE BLOOD CELL COUNT,WBC 14.5 10^3/uL (5.0-10.0)
[2025-01-26 17:14] LABS: BASOPHILS PERCENT AUTO 0.1 % (0.0-1.0); EOSINOPHILS PERCENT AUTO 0.1 % (1.0-3.0); MONOCYTES PERCENT AUTO 7.4 % (2-8); NEUTROPHILS PERCENT AUTO 88.4 % (42.2-75.2)
[2025-01-26 17:16] LABS: APPEARANCE,URINE CLEAR (CLEAR); BILIRUBIN,URINE NEGATIVE (NEGATIVE); GLUCOSE,URINE 250 (NEGATIVE); KETONES,URINE 15 (NEGATIVE); LEUKOCYTE ESTERASE,URINE NEGATIVE (NEGATIVE); NITRITE,URINE NEGATIVE (NEGATIVE); OCCULT BLOOD,URINE NEGATIVE (NEGATIVE); PH,URINE 5.5 (5.0-9.0); PROTEIN,URINE NEGATIVE (NEGATIVE); UROBILINOGEN,URINE 0.2 mg/dL (0.2-1.0)
[2025-01-26 17:19] LABS: COLOR,URINE LIGHT YELLOW (YELLOW)
[2025-01-26 17:28] LABS: BAND PERCENT MAN 3 %; LYMPHOCYTES PERCENT MAN 3 % (20-50); SEG NEUTROPHILS PERCENT MAN 89 % (42-75)
[2025-01-26 17:29] LABS: MONOCYTES PERCENT MAN 5 % (2-8)
[2025-01-26 17:36] LABS: LACTIC ACID 1.4 mmol/L (0.4-2.0)
[2025-01-26 17:42] LABS: ALBUMIN 2.7 g/dL (3.4-5.0); BILIRUBIN TOTAL 0.5 mg/dL (0.2-1.0); BUN/CREATININE RATIO 9.2 (No establ ref range); CALCIUM 8.7 mg/dL (8.5-10.1); CREATININE 1.84 mg/dL (0.55-1.02); EST CRCL DRUG DOSING (CG) 28.52 mL/min; MAGNESIUM 1.8 mg/dL (1.8-2.4); PROTEIN TOTAL,TP 6.7 g/dL (6.4-8.2)
[2025-01-26 17:48] LABS: ANION GAP 19.2 mEq/L (7-13)
[2025-01-26 17:52] LABS: A/G RATIO 0.68
[2025-01-26 17:53] LABS: POTASSIUM,K 5.2 mmol/L (3.5-5.1)
[2025-01-26 20:06] LABS: BASE EXCESS VENOUS -3.3 mmol/l ((-2)-(+3)); BICARBONATE,VENOUS 22 mmol/l (19-25); O2 DELIVERY DEVICE ROOM AIR; O2 SATURATION VENOUS 58.2 % (60-80); PCO2 VENOUS 45 mmHg (41-51); PH,VENOUS 7.31 (7.31-7.41); PO2 VENOUS 36 mmHg (35-42)
[2025-01-26] MEDS: Famotidine 20 MG/2 ML SDV IVPUSH ONE (22:14)
[2025-01-27] MEDS: Albuterol/Ipratropium 3.0-0.5 MG/3 ML Neb Soln NEB ONE ×2 (01:03→07:18)
[2025-01-27] MEDS: Ciprofloxacin in D5W 400 MG in Premix Bag 1 BAG IV ONE (01:03)
[2025-01-27] MEDS ORDERED: Glucagon,Human Recombinant 1 MG Vial IM PRN ×3 (02:48→10:08)
[2025-01-27] MEDS ORDERED: 50% Dextrose in Water 50 ML Syringe IVPUSH PRN ×3 (02:48→10:08)
[2025-01-27] MEDS: Insulin Glarg,Human.Rec.Analog 100 Unit/ML 10 ML Vial SUBCUT ONE (02:52)
[2025-01-27] MEDS: Sodium Chloride 0.9% 500 ML IV SCH (02:58)
[2025-01-27] MEDS: Insulin Regular, Human 100 Units/ML 10 ML Vial SUBCUT ONE (06:48)
[2025-01-27 07:29] LABS: BASE EXCESS ARTERIAL -5 mmol/L ((-2)-(+3)); BICARBONATE,ARTERIAL 19.9 mmol/L (22-26); O2 DELIVERY DEVICE NASAL CANNULA; O2 SATURATION ARTERIAL 96 % (95-100); PCO2 ARTERIAL 37 mmHg (35-45); PH,ARTERIAL 7.35 (7.35-7.45); PO2 ARTERIAL 81 mmHg (70-100)
[2025-01-27 07:30] LABS: ALLEN TEST PERFORMED
[2025-01-27 07:33] LABS: BASOPHILS PERCENT AUTO 0.1 % (0.0-1.0); EOSINOPHILS PERCENT AUTO 0.1 % (1.0-3.0); LYMPHOCYTES PERCENT AUTO 3.5 % (20.5-50.1); MEAN CORPUSCULAR HGB CONC 32.1 g/dL (33.0-35.0); MEAN CORPUSCULAR VOLUME 84.1 fL (80-100); NEUTROPHILS PERCENT AUTO 85.3 % (42.2-75.2); PLATELET COUNT,PLT 376 10^3/uL (150-450); RED BLOOD CELL COUNT 3.33 10^6/uL (4.2-5.4); WHITE BLOOD CELL COUNT,WBC 13.5 10^3/uL (5.0-10.0)
[2025-01-27] MEDS: Labetalol 20 MG/4 ML Syringe IVPUSH ONE (07:34)
[2025-01-27 07:53] LABS: ALANINE AMINOTRANSFERASE,ALT 9 U/L (14-59); ALBUMIN 2.2 g/dL (3.4-5.0); ALKALINE PHOSPHATASE 97 U/L (46-116); ANION GAP 16.3 mEq/L (7-13); BILIRUBIN TOTAL 0.4 mg/dL (0.2-1.0); BLOOD UREA NITROGEN,BUN 15 mg/dL (7-18); BUN/CREATININE RATIO 8.5 (No establ ref range); CALCIUM 8.1 mg/dL (8.5-10.1); CARBON DIOXIDE,CO2 22 mmol/L (21-32); CHLORIDE,CL 98 mmol/L (98-107); CREATININE 1.76 mg/dL (0.55-1.02); EST CRCL DRUG DOSING (CG) 29.81 mL/min; GLUCOSE RANDOM 323 mg/dL (70-99); PROTEIN TOTAL,TP 5.6 g/dL (6.4-8.2); SODIUM,NA 131 mmol/L (136-145)
[2025-01-27 08:02] LABS: A/G RATIO 0.65; ASPARTATE AMNIOTRANSFERASE,AST < 5 U/L (15-37); ESTIMATED GFR 33 mL/min (>=60)
[2025-01-27 08:03] LABS: POTASSIUM,K 5.3 mmol/L (3.5-5.1)
[2025-01-27 08:50] VITALS: BP 141/58; PULSE 94
[2025-01-27] MEDS: Dextrose 5% in Water 250 ML IV SCH (10:01)
[2025-01-27] MEDS: Furosemide 100 MG/10 ML SDV IVPUSH ONE (10:05)
[2025-01-27] MEDS ORDERED: Insulin Lispro 100 Units/ML 3 ML Vial SUBCUT ONE (10:08)
[2025-01-27] MEDS: TACROLIMUS PO SCH (10:29)
[2025-01-27] MEDS: Mycophenolate Mofetil 250 MG Cap PO ONE (10:30)
[2025-01-27] MEDS: Pantoprazole 40 MG Tab.CR PO ONE (10:30)
[2025-01-27] MEDS: predniSONE 5 MG Tab PO ONE (10:30)
[2025-01-27] MEDS: Insulin Regular, Human 100 Units/ML 10 ML Vial SUBCUT SCH (10:59)
[2025-01-27] MEDS ORDERED: Insulin Regular, Human 100 Units/ML 10 ML Vial SUBCUT ONE (11:00)
[2025-01-30 15:47] LABS: TACROLIMUS (FK506) 10.6 ng/mL
== END 2025-01-27 11:49 | disposition still patient (30) ==
LOC: DL.ED 15:45
DX: A04.8 Other specified bacterial intestinal infections (principal); E86.0 Dehydration; E11.22 Type 2 diabetes mellitus with diabetic chronic kidney disease; D63.1 Anemia in chronic kidney disease; N17.9 Acute kidney failure, unspecified; I12.9 Hypertensive chronic kidney disease with stage 1 through stage 4 chronic kidney disease, or unspecified chronic kidney disease; N18.9 Chronic kidney disease, unspecified; E87.1 Hypo-osmolality and hyponatremia; Z90.710 Acquired absence of both cervix and uterus; Z79.899 Other long term (current) drug therapy; Z79.4 Long term (current) use of insulin; Z79.52 Long term (current) use of systemic steroids; Z88.6 Allergy status to analgesic agent
CPT/HCPCS: 36415; 36600; 71045; 74176; 80053; 80197; 81003; 82009; 82803; 82947; 83605; 83690; 83735; 84484; 85025; 87040; 87428; 94640; 96361; 96365; 96375; 99284; 99285; A9270; J0744; J1815; J1940; J7030; J7040; J7060; J7620; J7070